=== PATIENT | male | born 1950 | race Caucasian/White ===

== ENCOUNTER 2019-05-25 12:54 | Outpatient (RCR) | payer MEDICARE, MEDICAID, SELFPAY ==
[2019-05-25 13:30] VITALS: BMI 32.7
== END 2019-08-10 07:44 | disposition home or self-care (01) ==
LOC: ANHWOC 12:54
PROVIDERS: PCP Nurse Practitioner Family; Visit Provider Nurse Practitioner Family
DX: S80.812D Abrasion, left lower leg, subsequent encounter (principal)
CPT/HCPCS: 99212; G0463

== ENCOUNTER 2019-10-13 13:36 | Outpatient (CLI) | payer MEDICARE, SELFPAY | END 2019-10-13 13:37 | disposition home or self-care (01) | LOC: CHSLAB 13:38 | PROVIDERS: PCP Family Medicine; Visit Provider Family Medicine | DX: E11.9 Type 2 diabetes mellitus without complications (principal) | CPT/HCPCS: 36415; 83036 ==

== ENCOUNTER 2019-12-18 09:27 | Outpatient (CLI) | payer MEDICARE, MEDICAID, SELFPAY ==
--- NOTE | ~2019-12-18 | US_ITS ---
EXAMINATION: US soft tissue abdomen EXAM DATE: 12/18/2019 09:57 INDICATION: Localized soft tissue lump left of midline. TECHNIQUE: Multiple grayscale and Doppler images of the symptomatic soft tissue abdominal region. wer e obtained (by a technologist who performed the scan) and subsequently reviewed. There is no prior s tudy for comparison. FINDINGS: Scanning in the area of concern demonstrates some heterogeneity to the subcutaneous fat, could be jessica ma without a specific etiology identified. No focal abscess or mass identified. IMPRESSION: 1. Suspect nonspecific edema at area of clinical concern. Reviewed, dictated and finalized at location B.
== END 2019-12-18 09:28 | disposition home or self-care (01) ==
PROVIDERS: PCP Nurse Practitioner Family; Visit Provider Nurse Practitioner Family
DX: R22.2 Localized swelling, mass and lump, trunk (principal)
CPT/HCPCS: 76705

== ENCOUNTER 2020-06-07 13:58 | Outpatient (NON) | payer MEDICARE, SELFPAY ==
[2020-06-07 15:34] LABS: Alanine Aminotransferase 48 U/L (16-63); Albumin Level 3.8 g/dL (3.4-5.0); Alkaline Phosphatase 63 U/L (46-116); Anion Gap 10 mmol/L (8-16); Aspartate Amino Transferase 26 U/L (15-37); Bilirubin,Total 0.2 mg/dL (0.00-1.00); Blood Urea Nitrogen 17 mg/dL (7-18); Calcium 8.7 mg/dL (8.5-10.1); Carbon Dioxide 27 mmol/L (21-32); Chloride 101 mmol/L (98-108); Cholesterol 124 mg/dL (0-200); Estimated Glomerular Filt Rate 51; Glucose 270 mg/dL (70-99); HDL Direct 33 mg/dL (40-60); LDL Cholesterol Calculated 50 mg/dL (<130); Osmolality Calculated 297 mOsm/kg (285-295); Potassium 4.9 mmol/L (3.5-5.1); Sodium 138 mmol/L (136-145); Total Protein 7.8 g/dL (6.4-8.2); Triglycerides 207 mg/dL (0-150)
== END 2020-06-07 13:59 ==
LOC: CHSLAB 13:59
PROVIDERS: Visit Provider Nurse Practitioner Family
DX: E11.9 Type 2 diabetes mellitus without complications (principal)
CPT/HCPCS: 36415; 80053; 80061; 83036

== ENCOUNTER 2020-08-05 10:34 | Observation (INO) | payer MEDICARE, MEDICAID, SELFPAY ==
--- NOTE | ~2020-08-05 | CT_ITS ---
EXAMINATION: CT brain wo con EXAM DATE: 08/05/2020 12:08 INDICATION: Headache, weakness, confusion. TECHNIQUE: Spiral CT of the head was performed without contrast. Axial, coronal and sagittal images were reviewed. The dose-length product (DLP) for this examination was 605.33 mGy-cm. The exposure w as tailored according to patient size, and iterative reconstruction (ASIR) was used as additional dos e reduction technique. Comparison is made to prior examination from 08/17/2015. FINDINGS: There is no acute intraparenchymal hemorrhage. No evidence of intraparenchymal brain mass lesion. No evidence of acute infarction. Please note that initial head CT has limited sensitivity f or small or acute infarctions. There is mild periventricular and subcortical hypodensity, nonspecific but probably related to small vessel ischemic disease. There is moderate prominence of the sulci a nd ventricles related to cerebral atrophy. There is intracranial carotid arteriosclerosis. There a re no extra-axial collections. There is no mass effect or midline shift. Patient has had left-sided ocular lens surgery. Soft tissue is unremarkable. The visualized sinuses and mastoid air cells ar e well aerated. Mild interval progression in age-related findings compared to 2016. IMPRESSION: 1. No acute intracranial findings. 2. Chronic age related findings. Reviewed, dictated and finalized at location A.
--- NOTE | ~2020-08-05 | XR_ITS ---
EXAMINATION: XR chest 2V EXAM DATE: 08/05/2020 11:57 INDICATION: Generalized weakness and confusion. Altered mental status. Headache. TECHNIQUE: Frontal and lateral projections of the chest obtained and reviewed. Comparison is made to prior examination from 04/13/2016. FINDINGS: There is mildly elevated left hemidiaphragm with small amount of adjacent airspace disease most likely atelectasis given the volume loss. Can't totally exclude developing pneumonia. There is no pneumothorax suspected. There are no pleural effusions. The cardiomediastinal silhouette is promin ent but magnified on this AP technique. There are no osseous abnormalities identified. IMPRESSION: Mildly elevated left hemidiaphragm with adjacent atelectasis. Can't totally exclude pneu monia. Reviewed, dictated and finalized at location A. IMPRESSION: Mildly elevated left hemidiaphragm with adjacent atelectasis. Can' t totally exclude pneumonia.
[2020-08-05 10:40] VITALS: BP 146/77; PULSE 91; RESP 20; TEMP 37.5; O2SAT 96
--- NOTE | 2020-08-05 10:42 | ECG_ITS ---
Measurements Intervals [place] Rate: 88 P: 49 [place]: 156 QRS: -32 QRSD: 101 T: -1 QT: 315 QTc: 381 Interpretive Statements SINUS RHYTHM LEFT AXIS DEVIATION VOLTAGE CRITERIA FOR LVH POOR R WAVE PROGRESSION, ANTERIOR LEADS MINIMAL Q WAVES- HIGH LATERAL LEADS BORDERLINE ST-T WAVE ABNORMALITY- INFERIOR LEADS BORDERLINE ECG Electronically Signed On 08-05-2020 11:37:48 CDT by Oni Rangel D.O.
[2020-08-05 10:53] LABS: Add Urine Microscopic? YES; Appearance Urine Clear (Clear); Bilirubin Urine Negative (Negative); Blood Urine Negative (Negative); Color Urine Yellow (Yellow); Glucose Urine UA Trace (Negative); Ketones Urine Negative (Negative); Leukocyte Esterase Ur Negative LEU/UL (Negative); Nitrate Urine Negative (Negative); Protein Urine Negative (Negative); Specific Grav Ur 1.015 (1.010-1.020); Urobilinogen Urine 0.2 mg/dL (0.2-1.0)
[2020-08-05 11:14] LABS: Basophils Absolute Auto 0.01 K/mm3 (0.00-0.10); Basophils Percent Auto 0.2 % (0.0-1.0); Eosinophils Absolute Auto 0.06 K/mm3 (0.02-0.50); Eosinophils Percent Auto 1.3 % (1.0-6.0); Hematocrit 38.9 % (37.0-46.0); Hemoglobin 12.7 g/dL (12.4-15.3); Immature Granulocyte Absolute 0.04 K/mm3 (0.00-0.00); Immature Granulocyte Percent A 0.9 % (0.0-0.0); Lymphocytes Absolute Auto 0.35 K/mm3 (1.10-4.50); Lymphocytes Percent Auto 7.5 % (18.0-42.0); Mean Corpuscular HGB Conc 32.6 g/dL (32.0-36.0); Mean Corpuscular Hemoglobin 29.4 pg (27.0-31.0); Mean Platelet Volume 11.6 fl (8.7-11.0); Monocytes Absolute Auto 0.25 K/mm3 (0.10-0.90); Monocytes Percent Auto 5.3 % (2.0-11.0); Neutrophils Percent Auto 84.8 % (50.0-70.0); Platelet Count Result 153 K/mm3 (150-420); Red Blood Count 4.32 M/mm3 (4.70-6.10); Red Cell Distribution Width 13.8 % (11.6-14.4); White Blood Count 4.7 K/mm3 (4.8-10.8)
[2020-08-05 11:16] LABS: Bacteria Urine None seen /hpf; RBC Urine None seen /hpf (0-2); WBC Urine None seen /hpf (0-3)
[2020-08-05 11:22] LABS: Alanine Aminotransferase 54 U/L (16-63); Albumin Level 3.4 g/dL (3.4-5.0); Alkaline Phosphatase 61 U/L (46-116); Anion Gap 6 mmol/L (8-16); Aspartate Amino Transferase 58 U/L (15-37); Bilirubin,Total 0.4 mg/dL (0.00-1.00); Blood Urea Nitrogen 15 mg/dL (7-18); CRP 2.5 mg/dL (0.0-0.9); Calcium 8.8 mg/dL (8.5-10.1); Carbon Dioxide 28 mmol/L (21-32); Chloride 102 mmol/L (98-108); Estimated Glomerular Filt Rate > 60; Glucose 164 mg/dL (70-99); Osmolality Calculated 286 mOsm/kg (285-295); Potassium 4.1 mmol/L (3.5-5.1); Sodium 136 mmol/L (136-145)
[2020-08-05 11:28] LABS: Partial Thromboplastin Time 25.6 SEC (23.90-30.70); Prothrombin Time 10.9 Seconds (9.50-12.10)
[2020-08-05 11:31] LABS: Lactic Acid Reflex 1.1 mmol/L (0.4-2.0)
[2020-08-05] MEDS: ONDANSETRON INJ 4 MG/2 ML VIAL IV PUSH (11:31)
[2020-08-05] MEDS: SODIUM CHLORIDE 0.9% IV 1,000 ML 999 ML IV CONT (11:31)
[2020-08-05 11:48] LABS: Troponin I 6.8 ng/L (0.00-60.4)
--- NOTE | 2020-08-05 12:53 | ED.WEAKNESS ---
HPI - Weakness General Chief complaint: Weakness Stated complaint: ambulance Time Seen by Provider: 08/05/20 10:34 Source: patient Mode of arrival: ambulatory Limitations: no limitations History of Present Illness HPI Narrative: 70-year-old man brought to the emergency department today by EMS after calling regarding weakness and confusion. His symptoms started this morning. He has not been able to get up and walk like usual. States that his blood sugars have been variable but unusually lower unusually high. He denies shortness breath, chest pain, cough, cold symptoms, nausea, vomiting, diarrhea, dysuria, abdominal pain or back pain. He denies falls or injuries. MD Complaint: generalized weakness and lack of energy Onset (ago): hour(s) Duration: constant Location: generalized Migration: none Severity: moderate Relieving factors: none Exacerbating factors: none Associated symptoms: denies other symptoms Related Data Home Medications Medication Instructions Recorded Confirmed amitriptyline 50 mg PO HS 08/05/20 08/05/20 atorvastatin 10 mg PO DAILY 08/05/20 08/05/20 insulin detemir U-100 [Levemir 45 unit SUBCUT BID 08/05/20 08/05/20 U-100 Insulin] levothyroxine 25 mcg PO DAILY 08/05/20 08/05/20 lisinopril 20 mg PO DAILY 08/05/20 08/05/20 metformin 1,000 mg PO BID 08/05/20 08/05/20 metoprolol succinate 100 mg PO BID 08/05/20 08/05/20 Allergies Allergy/AdvReac Type Severity Reaction Status Date / Time cephalexin Allergy Unknown Unknown Verified 06/07/20 13:32 ibuprofen Allergy Unknown Unknown Verified 06/07/20 13:32 tramadol Allergy Unknown Unknown Verified 06/07/20 13:32 Review of Systems Review of Systems: All systems reviewed & are unremarkable except as noted in HPI and below Constitutional: Constitutional: Denies chills, Denies fever(s) and Reports weakness Eyes: Eyes: Denies change in vision and Denies photophobia ENT: Denies dysphagia, Denies nasal congestion and Denies sore throat Cardiovascular: Cardiovascular: Denies chest pain and Denies radiating jaw, neck or arm pain Respiratory: Respiratory: Denies cough and Denies dyspnea Gastrointestinal: Gastrointestinal: Denies abdominal pain, Denies nausea and Denies vomiting Genitourinary: Genitourinary: Denies dysuria and Denies urinary frequency Musculoskeletal: Musculoskeletal: Denies back pain, Denies arthralgias and Denies joint swelling Integumentary/Breasts: Skin/Breast: Denies pruritus, Denies erythema and Denies rash Neurologic: Denies vertigo, Denies dizziness, Denies syncope, Reports headache(s), Denies focal weakness and Denies numbness Hematologic/Lymphatic: Hematologic/Lymphatic: Denies easy bleeding and Denies easy bruising Allergic/Immunologic: Allergic/Immunologic: Denies lip swelling and Denies throat swelling PMFSH Past Medical History Medical History GERD (gastroesophageal reflux disease) HTN (hypertension) Hyperlipidemia Hypothyroidism Overweight Sleep apnea, unspecified Tobacco dependency Type 2 diabetes mellitus Social History Social History Smoking status: Former smoker Additional smoking assessment comments: Quit 1989 Gender identity (if verbalized by the patient): Male Exam Const: General: healthy appearing, no acute distress and alert Orientation/consciousness: patient oriented x3 Limitations: no limitations HENMT: Head: normal to inspection Ears: external ears normal, TM's normal bilaterally and EAC's normal General nose exam: Normal nares present Face and sinus: normal facial exam Mouth: Yes dry mucous membranes Throat: posterior oropharynx normal Eyes: Conjunctivae: conjunctivae normal Pupils: Equal, round and reactive pupils present EOM: EOMs intact bilaterally Neck: Neck: normal visual inspection Other: No tenderness, normal range of motion. Resp: Effort & Inspection: normal re
[2020-08-05 13:06] VITALS: BP 178/95; PULSE 94; RESP 20; O2SAT 94; O2SAT 97
[2020-08-05 13:14] LABS: SARS-CoV-2 Ag Negative (Negative)
[2020-08-05 14:12] VITALS: BP 149/94; BP 168/94; PULSE 95; RESP 20; TEMP 37.1; O2SAT 97
[2020-08-05 14:41] VITALS: BP 166/88; PULSE 95; RESP 20; O2SAT 95
--- NOTE | 2020-08-05 15:12 | ADMGEN ---
This patient, Fritz Sousa, was admitted to 2nd Floor Room 227-1 @ 1445. Patient/family oriented to hospital policies and general routines including ID bracelet, bed and alarms, visiting hours, pain management, procedures, bathroom and other care routines, personal items, smoking policy, room service/diet, and visiting hours. Information on how to activate the Rapid Response Team has been discussed. Patient/Family are encouraged to report perceived risks to care and to ask questions if they do not understand what they are told or what they should do.
[2020-08-05] MEDS: SODIUM CHLORIDE 0.9% IV 1,000 ML 100 ML IV CONT (15:55)
[2020-08-05 16:00] VITALS: BP 155/89; PULSE 94; RESP 16; TEMP 36.6; O2SAT 95
[2020-08-05 16:03] VITALS: BMI 31.2
--- NOTE | 2020-08-05 16:10 | PC.NURSE ---
physician notified of fall at 1600
--- NOTE | 2020-08-05 16:12 | PC.NURSE ---
pt found on floor in bathroom by PT, amb to chair with x2 assist and gait belt, moved to room 207 for safety, pt able to answer where he is and what day it is, dr called, no visible signs of deformaties or new skin tears, bed alarm on, rails up, iv running
[2020-08-05] MEDS: ACETAMINOPHEN 325 MG TABLET 650 MG PO (17:03)
[2020-08-05] MEDS: ENOXAPARIN 40 MG/0.4 ML SYRINGE SUB-Q (17:04)
[2020-08-05] MEDS: metFORMIN HCL 500 MG TABLET 1000 MG PO (17:04)
[2020-08-05 17:12] LABS: Glucose Point of Care 199 (65-105)
--- NOTE | 2020-08-05 17:42 | PC.NURSE ---
spoke with franchesca concerning fall and trulicity, reports he has been having trouble getting up today and fell 3 times at home, she will bring up trulicity tomorrow she is unsure what day he takes it
[2020-08-05] MEDS: GABAPENTIN 400 MG CAPSULE 1600 MG PO (21:25)
[2020-08-05] MEDS: AMITRIPTYLINE HCL 25 MG TABLET 50 MG PO (21:25)
[2020-08-05] MEDS: HYDROcodone/acetaminophen (*CRX) 5-325 MG TABLET 1 TAB PO (21:25)
[2020-08-05 21:32] LABS: Glucose Point of Care 259 (65-105)
--- NOTE | 2020-08-05 21:48 | PC.NURSE ---
pt resting in bed, iv running, no complaints at this time, urinal in reach, rails up, bed alarm on
[2020-08-06] VITALS: BP 157/80; PULSE 86; RESP 20; TEMP 37; O2SAT 96
--- NOTE | 2020-08-06 00:11 | PC.NURSE ---
Pt watching tv and doesnt voice any c/o discomfort; Pt voided 675 ml of clear, katlyn urine in urinal. Side rails up x2 and call rowe within reach.
[2020-08-06] MEDS: SODIUM CHLORIDE 0.9% IV 1,000 ML 100 ML IV CONT (03:36)
--- NOTE | 2020-08-06 03:36 | PC.NURSE ---
Pt asleep and no signs of discomfort noted. New bag of IV fluid infusing as ordered.
[2020-08-06 05:44] LABS: Hemoglobin 12.4 g/dL (12.4-15.3); Mean Corpuscular HGB Conc 31.8 g/dL (32.0-36.0); Mean Corpuscular Volume 91.1 fL (78.0-102.0); Mean Platelet Volume 12.6 fl (8.7-11.0); Platelet Count Result 152 K/mm3 (150-420); Red Blood Count 4.28 M/mm3 (4.70-6.10); Red Cell Distribution Width 14.5 % (11.6-14.4); White Blood Count 3.7 K/mm3 (4.8-10.8)
[2020-08-06 05:59] LABS: Alanine Aminotransferase 47 U/L (16-63); Albumin Level 3.1 g/dL (3.4-5.0); Alkaline Phosphatase 59 U/L (46-116); Anion Gap 11 mmol/L (8-16); Aspartate Amino Transferase 41 U/L (15-37); Bilirubin,Total 0.4 mg/dL (0.00-1.00); Blood Urea Nitrogen 18 mg/dL (7-18); Calcium 8.3 mg/dL (8.5-10.1); Carbon Dioxide 24 mmol/L (21-32); Chloride 99 mmol/L (98-108); Estimated CRCL calculation 60 ml/min; Estimated Glomerular Filt Rate 60; Glucose 260 mg/dL (70-99); Osmolality Calculated 288 mOsm/kg (285-295); Potassium 4.1 mmol/L (3.5-5.1); Sodium 134 mmol/L (136-145); Total Protein 6.5 g/dL (6.4-8.2)
[2020-08-06 06:11] LABS: CRP 3.3 mg/dL (0.0-0.9)
[2020-08-06] MEDS: LEVOTHYROXINE SODIUM 25 MCG TABLET PO (06:35)
[2020-08-06 07:04] LABS: Band Neutrophils Percent 7 % (0-6); Basophils Percent Manual 0 % (0-1); Eosinophils Percent Manual 0 % (1-6); Lymphocytes Absolute Manual 0.99 K/mm3 (1.1-4.5); Lymphocytes Percent Manual 27 % (18-44); Metamyelocytes Percent 1 %; Monocytes Percent Manual 11 % (3-9); Neutrophils Absolute Manual 2.25 K/mm3 (1.3-6.7); Neutrophils Percent Manual 54 % (46-73); Total Cells Counted 100
[2020-08-06 07:05] LABS: Platelet Estimate Adequate (Adequate)
--- NOTE | 2020-08-06 07:08 | PC.NURSE ---
Pt given synthroid 25 mcg PO as ordered.
[2020-08-06 07:52] LABS: Glucose Point of Care 278 (65-105)
[2020-08-06 08:00] VITALS: BP 142/77; PULSE 100; RESP 20; TEMP 37.2; O2SAT 93
[2020-08-06] MEDS: INSULIN DETEMIR 100 UNITS/ML 45 UNITS SUB-Q ×2 (08:38→17:12)
[2020-08-06 08:40] VITALS: PULSE 100
[2020-08-06] MEDS: METOPROLOL SUCCINATE EXT REL 50 MG TABCR 100 MG PO (08:40)
[2020-08-06] MEDS: lisinopriL 20 MG TABLET PO (08:41)
[2020-08-06] MEDS: ATORVASTATIN 10 MG TABLET PO (08:41)
[2020-08-06] MEDS: GABAPENTIN 400 MG CAPSULE 800 MG PO (08:41)
[2020-08-06] MEDS: metFORMIN HCL 500 MG TABLET 1000 MG PO ×2 (08:41→17:10)
[2020-08-06] MEDS: MELOXICAM 7.5 MG TABLET 15 MG PO (08:42)
--- NOTE | 2020-08-06 11:22 | PM.IMHP ---
H&P: HPI History of Present Illness Date/Time: 08/06/20 11:22 this is a 70-year-old presented to our ED with weakness and confusion. Patient has a past medical history of GERD, hypertension, hyperlipidemia, hypothyroidism, sleep apnea. Tobacco dependency with type 2 diabetes. According to patient he gets up every morning and cooks herself breakfast. This morning he attempted to get out of bed and fell to the floor. Patient denies any lightheadedness, dizziness, shortness of breath or chest pain at that time. After his fall his called EMS to transport him here to the ED. According to report patient attempted to get out of bed overnight while hospitalized and fell while he was in the restroom. Patient notes that while in the restroom his lower extremities felt weak and he fell. Patient does deny any injuries or hitting his head. patient glucose 164, CRP 2.5, AST 58 all other lab test within normal limits, chest x-ray indicates possible pneumonia CT of the head no acute findings. EKG sinus rhythm heart rate of 88. The patient denies SOB, CP, palpitation, extremity numbness, lightheadedness, dizziness, constipation, diarrhea, chills, or fever. Patient does admit weakness. I did have a discussion with his this a.m. she seemed to be in distress, she noted that she is unable to home with outpatient and requested that he be discharged today. I informed her that it would be unsafe for us to discharge him without being evaluated by physical therapy. Patient has no complaints Patient moved closer to the nursing station to prevent falls Chief Complaint: Weakness, fall, confusion Review of Systems Review of Systems: Narrative: A 14 organ system Review of Systems was performed and pertinent positives included in the HPI, otherwise remaining ROS is negative. All systems reviewed & are unremarkable except as noted in HPI and below PMFSH Past Medical History Medical History (Updated 08/06/20 @ 12:03 by MIMI Jorgensen) GERD (gastroesophageal reflux disease) HTN (hypertension) Hyperlipidemia Hypothyroidism Overweight Sleep apnea, unspecified Tobacco dependency Type 2 diabetes mellitus Social History Social History Smoking status: Former smoker Tobacco type: cigarettes Second hand tobacco smoke exposure: Yes Additional smoking assessment comments: Quit 1989 Gender identity (if verbalized by the patient): Male Meds Home Medications and Allergies Home Medications Medication Instructions Recorded Confirmed Type meloxicam 15 mg tablet See Rx Instructions .ROUTE 12/31/19 08/05/20 Rx .COMPLEX #90 tablet gabapentin 800 mg tablet See Rx Instructions .ROUTE 05/26/20 08/05/20 Rx .COMPLEX #90 tablet dulaglutide 0.75 mg/0.5 mL 0.75 mg SUBCUT WEEKLY #2 ml 06/10/20 08/05/20 Rx subcutaneous pen injector amitriptyline 50 mg PO HS 08/05/20 08/05/20 History atorvastatin 10 mg PO DAILY 08/05/20 08/05/20 History insulin detemir U-100 [Levemir 45 unit SUBCUT BID 08/05/20 08/05/20 History U-100 Insulin] levothyroxine 25 mcg PO DAILY 08/05/20 08/05/20 History lisinopril 20 mg PO DAILY 08/05/20 08/05/20 History metformin 1,000 mg PO BID 08/05/20 08/05/20 History metoprolol succinate 100 mg PO BID 08/05/20 08/05/20 History Allergies Allergy/AdvReac Type Severity Reaction Status Date / Time cephalexin Allergy Unknown Unknown Verified 06/07/20 13:32 ibuprofen Allergy Unknown Unknown Verified 06/07/20 13:32 tramadol Allergy Unknown Unknown Verified 06/07/20 13:32 Vital Signs Vital Signs - 24 hr 08/05/20 13:06 08/05/20 14:12 08/05/20 14:41 Temperature 98.7 F Pulse Rate 94 95 95 Respiratory Rate 20 20 20 Blood Pressure 178/95 H 168/94 H 166/88 H Pulse Oximetry 97 97 95 08/05/20 16:00 08/06/20 00:00 08/06/20 08:40 Temperature 97.9 F 98.6 F Pulse Rate 94 86 100 Respiratory Rate 16 20 Blood Pressure 155/89 H 157/80 H Pulse Oximetry 95 96
[2020-08-06 12:03] LABS: Glucose Point of Care 279 (65-105)
[2020-08-06 12:31] LABS: Lactic Acid Reflex 1.3 mmol/L (0.4-2.0)
[2020-08-06] MEDS: DOXYCYCLINE HYCLATE 100 MG TABLET PO ×2 (13:54→20:19)
[2020-08-06] MEDS: PANTOPRAZOLE SOD SESQUIHYDRATE 20 MG TAB PO (13:54)
[2020-08-06 16:00] VITALS: BP 153/78; PULSE 90; RESP 18; TEMP 36.4; O2SAT 98
[2020-08-06 16:45] LABS: Glucose Point of Care 305 (65-105)
[2020-08-06] MEDS: ENOXAPARIN 40 MG/0.4 ML SYRINGE SUB-Q (17:10)
[2020-08-06] MEDS: GABAPENTIN 400 MG CAPSULE 1600 MG PO (20:18)
[2020-08-06] MEDS: AMITRIPTYLINE HCL 25 MG TABLET 50 MG PO (20:18)
[2020-08-07] VITALS: BP 154/82; PULSE 84; RESP 20; TEMP 36.1; O2SAT 96
[2020-08-07] MEDS: LEVOTHYROXINE SODIUM 25 MCG TABLET PO (06:09)
[2020-08-07 08:00] VITALS: BP 172/96; PULSE 83; RESP 18; TEMP 36.3; O2SAT 95
[2020-08-07 08:22] LABS: Glucose Point of Care 82 (65-105)
[2020-08-07 09:03] VITALS: PULSE 83
[2020-08-07] MEDS: MELOXICAM 7.5 MG TABLET 15 MG PO (09:03)
[2020-08-07] MEDS: METOPROLOL SUCCINATE EXT REL 50 MG TABCR 100 MG PO (09:03)
[2020-08-07] MEDS: GABAPENTIN 400 MG CAPSULE 800 MG PO (09:04)
[2020-08-07] MEDS: metFORMIN HCL 500 MG TABLET 1000 MG PO (09:04)
[2020-08-07] MEDS: DOXYCYCLINE HYCLATE 100 MG TABLET PO (09:05)
[2020-08-07] MEDS: ATORVASTATIN 10 MG TABLET PO (09:05)
[2020-08-07] MEDS: lisinopriL 20 MG TABLET PO (09:05)
[2020-08-07] MEDS: PANTOPRAZOLE SOD SESQUIHYDRATE 20 MG TAB PO (09:05)
[2020-08-07 09:19] LABS: Hematocrit 37.7 % (37.0-46.0); Hemoglobin 12.2 g/dL (12.4-15.3); Mean Corpuscular HGB Conc 32.4 g/dL (32.0-36.0); Mean Corpuscular Hemoglobin 28.9 pg (27.0-31.0); Mean Corpuscular Volume 89.3 fL (78.0-102.0); Mean Platelet Volume 11.8 fl (8.7-11.0); Platelet Count Result 157 K/mm3 (150-420); Red Blood Count 4.22 M/mm3 (4.70-6.10); Red Cell Distribution Width 14.3 % (11.6-14.4); White Blood Count 4.4 K/mm3 (4.8-10.8)
[2020-08-07 09:40] LABS: Alanine Aminotransferase 48 U/L (16-63); Albumin Level 3.1 g/dL (3.4-5.0); Alkaline Phosphatase 57 U/L (46-116); Anion Gap 8 mmol/L (8-16); Aspartate Amino Transferase 35 U/L (15-37); Bilirubin,Total 0.4 mg/dL (0.00-1.00); Blood Urea Nitrogen 17 mg/dL (7-18); Calcium 8.8 mg/dL (8.5-10.1); Carbon Dioxide 26 mmol/L (21-32); Chloride 104 mmol/L (98-108); Estimated CRCL calculation 63 ml/min; Estimated Glomerular Filt Rate > 60; Glucose 160 mg/dL (70-99); Osmolality Calculated 290 mOsm/kg (285-295); Potassium 3.9 mmol/L (3.5-5.1); Sodium 138 mmol/L (136-145); Total Protein 6.8 g/dL (6.4-8.2)
[2020-08-07 11:46] LABS: Glucose Point of Care 170 (65-105)
--- NOTE | 2020-08-07 11:58 | P.DS_ITS ---
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: Code(s): E08.40 - Diabetes mellitus due to underlying condition with diabetic neuropathy, unspecified Status: Acute Assessment and Plan: * According to patient he is a brittle diabetic * Continue home medication * Continue gabapentin (3) Tobacco dependency: Code(s): F17.200 - Nicotine dependence, unspecified, uncomplicated Status: Resolved Assessment and Plan: * Patient has not smoked for several years (4) Sleep apnea, unspecified: Code(s): G47.30 - Sleep apnea, unspecified Status: Acute (5) Type 2 diabetes mellitus: Code(s): E11.9 - Type 2 diabetes mellitus without complications Status: Acute Assessment and Plan: * According to patient he is a brittle diabetic * Continue home medication * Continue gabapentin (6) Hypothyroidism: Code(s): E03.9 - Hypothyroidism, unspecified Status: Acute Assessment and Plan: * Continue Synthroid * TSH within normal limits (7) HTN (hypertension): Code(s): I10 - Essential (primary) hypertension Status: Acute Assessment and Plan: * Slightly elevated * Continue home medication follow-up primary care physician (8) Hyperlipidemia: Code(s): E78.5 - Hyperlipidemia, unspecified Status: Acute Assessment and Plan: * Continue statins (9) GERD (gastroesophageal reflux disease): Code(s): K21.9 - Gastro-esophageal reflux disease without esophagitis Status: Acute Assessment and Plan: * Take [id number] medication follow-up primary care physician (10) Overweight: Code(s): E66.3 - Overweight Status: Chronic Assessment and Plan: * Educated on healthy lifestyle (11) Cellulitis: Code(s): L03.90 - Cellulitis, unspecified Status: Acute Assessment and Plan: * Cellulitis of the left pointer finger * Continue doxycycline x14 days * Lactic acid pending (12) Pneumonia: Code(s): J18.9 - Pneumonia, unspecified organism Status: Acute Assessment and Plan: * According to chest CT pneumonia cannot be ruled out * Blood culture. Pending preliminary no growth * Continue doxycycline * WBCs within normal limits patient afebrile (13) Elevated C-reactive protein (CRP): Code(s): R79.82 - Elevated C-reactive protein (CRP) Status: Acute Assessment and Plan: * Possibly secondary to falls * CRP 2.5-->3.3 * Worsened possibly secondary to repeat fall while hospitalized (14) Elevated AST (SGOT): Code(s): R74.01 - Elevation of levels of liver transaminase levels Status: Acute Assessment and Plan: * Resolved * Etiology unknown * AST 58-->41-->35 DS: Summary Hospital Course Hospital Course: his is a 70-year-old presented to our ED with weakness and confusion. Patient has a past medical history of GERD, hypertension, hyperlipidemia, hypothyroidism, sleep apnea with type 2 diabetes. According to patient he gets up every morning and cooks herself breakfast. The morning of admission he attempted to get out of bed and fell to the floor. Patient denies any lightheadedness, dizziness, short
--- NOTE | 2020-08-07 11:58 | PM.DS ---
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: Code(s): E08.40 - Diabetes mellitus due to underlying condition with diabetic neuropathy, unspecified Status: Acute Assessment and Plan: According to patient he is a brittle diabetic Continue home medication Continue gabapentin (3) Tobacco dependency: Code(s): F17.200 - Nicotine dependence, unspecified, uncomplicated Status: Resolved Assessment and Plan: Patient has not smoked for several years (4) Sleep apnea, unspecified: Code(s): G47.30 - Sleep apnea, unspecified Status: Acute (5) Type 2 diabetes mellitus: Code(s): E11.9 - Type 2 diabetes mellitus without complications Status: Acute Assessment and Plan: According to patient he is a brittle diabetic Continue home medication Continue gabapentin (6) Hypothyroidism: Code(s): E03.9 - Hypothyroidism, unspecified Status: Acute Assessment and Plan: Continue Synthroid TSH within normal limits (7) HTN (hypertension): Code(s): I10 - Essential (primary) hypertension Status: Acute Assessment and Plan: Slightly elevated Continue home medication follow-up primary care physician (8) Hyperlipidemia: Code(s): E78.5 - Hyperlipidemia, unspecified Status: Acute Assessment and Plan: Continue statins (9) GERD (gastroesophageal reflux disease): Code(s): K21.9 - Gastro-esophageal reflux disease without esophagitis Status: Acute Assessment and Plan: Take [id number] medication follow-up primary care physician (10) Overweight: Code(s): E66.3 - Overweight Status: Chronic Assessment and Plan: Educated on healthy lifestyle (11) Cellulitis: Code(s): L03.90 - Cellulitis, unspecified Status: Acute Assessment and Plan: Cellulitis of the left pointer finger Continue doxycycline x14 days Lactic acid pending (12) Pneumonia: Code(s): J18.9 - Pneumonia, unspecified organism Status: Acute Assessment and Plan: According to chest CT pneumonia cannot be ruled out Blood culture. Pending preliminary no growth Continue doxycycline WBCs within normal limits patient afebrile (13) Elevated C-reactive protein (CRP): Code(s): R79.82 - Elevated C-reactive protein (CRP) Status: Acute Assessment and Plan: Possibly secondary to falls CRP 2.5-->3.3 Worsened possibly secondary to repeat fall while hospitalized (14) Elevated AST (SGOT): Code(s): R74.01 - Elevation of levels of liver transaminase levels Status: Acute Assessment and Plan: Resolved Etiology unknown AST 58-->41-->35 DS: Summary Hospital Course Hospital Course: his is a 70-year-old presented to our ED with weakness and confusion. Patient has a past medical history of GERD, hypertension, hyperlipidemia, hypothyroidism, sleep apnea with type 2 diabetes. According to patient he gets up every morning and cooks herself breakfast. The morning of admission he attempted to get out of bed and fell to the floor. Patient denies any lightheadedness, dizziness, shortness of breath or chest pain at that time. After he fell his called EMS to transport him here to the ED. According to report patient attempted to get out of bed overnight while hospitalized and fell while he was in the restroom. Patient notes that while in the restroom his lower extremities felt weak and he fell. Patient denied any injuries or hitting his head. Patient Was Admitted for CAP and cellulitis to the hand .patient was treated with antibiotic as inpatie
--- NOTE | 2020-08-07 13:35 | PC.NURSE ---
Patient discharged home @ 1330 accompanied by spouse via personal vehicle. Discharge instructions/teaching successful with patient/spouse both acknowledge understanding. All personal items taken with spouse and car pulled to main entrance. Nurse escorted patient to entrance via WC and assisted in transfer to car.
--- NOTE | 2020-08-10 09:53 | PC.NURSE ---
Spouse states they received and understood the discharge instructions. She has no other comments.
[2020-08-17 13:28] LABS: Glucose Point of Care 266 (65-105)
== END 2020-08-07 13:20 | disposition home or self-care (01) ==
LOC: CHSED 10:37 → CHS2ND 13:49
PROVIDERS: Nurse Practitioner; Admitting Provider Emergency Medicine; Emergency Provider Emergency Medicine; PCP Nurse Practitioner Family; Visit Provider Emergency Medicine
DX: J18.9 Pneumonia, unspecified organism (principal); E11.40 Type 2 diabetes mellitus with diabetic neuropathy, unspecified; L03.012 Cellulitis of left finger; I10 Essential (primary) hypertension; K21.9 Gastro-esophageal reflux disease without esophagitis; E78.5 Hyperlipidemia, unspecified; E03.9 Hypothyroidism, unspecified; E66.3 Overweight; G47.30 Sleep apnea, unspecified; R74.01 Elevation of levels of liver transaminase levels; Z20.822 Contact with and (suspected) exposure to COVID-19; Z87.891 Personal history of nicotine dependence
CPT/HCPCS: 36415; 51701; 70450; 71046; 80053; 81001; 82948; 83605; 84443; 84484; 85025; 85027; 85610; 85730; 86140; 87040; 87426; 93005; 96361; 96365; 96366; 96372; 96374; 96375; 97162; 97165; 97530; 99285; A9270; C9803; G0378; J1650; J1815; J1956; J2405; J7030

== ENCOUNTER 2021-07-24 13:57 | Outpatient (CLI) | payer OTHER, SELFPAY ==
[2021-07-24 14:14] LABS: Basophils Absolute Auto 0.03 K/mm3 (0.00-0.10); Basophils Percent Auto 0.7 % (0.0-1.0); Eosinophils Absolute Auto 0.11 K/mm3 (0.02-0.50); Eosinophils Percent Auto 2.4 % (1.0-6.0); Hematocrit 40.6 % (37.0-46.0); Hemoglobin 13.3 g/dL (12.4-15.3); Immature Granulocyte Absolute 0.02 K/mm3 (0.00-0.00); Immature Granulocyte Percent A 0.4 % (0.0-0.0); Immature Platelet Fraction Pct 9.1 % (1.0-7.0); Lymphocytes Absolute Auto 0.72 K/mm3 (1.10-4.50); Mean Corpuscular HGB Conc 32.8 g/dL (32.0-36.0); Mean Corpuscular Hemoglobin 29.4 pg (27.0-31.0); Mean Corpuscular Volume 89.8 fL (78.0-102.0); Mean Platelet Volume 12.9 fl (8.7-11.0); Monocytes Absolute Auto 0.31 K/mm3 (0.10-0.90); Monocytes Percent Auto 6.9 % (2.0-11.0); Neutrophils Absolute Auto 3.3 K/mm3 (1.7-7.2); Neutrophils Percent Auto 73.6 % (50.0-70.0); Platelet Count Result 205 K/mm3 (150-420); Red Blood Count 4.52 M/mm3 (4.70-6.10); White Blood Count 4.5 K/mm3 (4.8-10.8)
[2021-07-24 14:46] LABS: Alanine Aminotransferase 46 U/L (16-63); Albumin Level 3.9 g/dL (3.4-5.0); Alkaline Phosphatase 72 U/L (46-116); Anion Gap 9 mmol/L (8-16); Bilirubin,Total 0.3 mg/dL (0.00-1.00); Blood Urea Nitrogen 15 mg/dL (7-18); Calcium 9.1 mg/dL (8.5-10.1); Carbon Dioxide 26 mmol/L (21-32); Chloride 100 mmol/L (98-108); Cholesterol 136 mg/dL (0-200); Estimated Glomerular Filt Rate 56; Free T4 Free Thyroxine 0.89 ng/dL (0.76-1.46); HDL Direct 32 mg/dL (40-60); LDL Cholesterol Calculated 30 mg/dL (<130); Sodium 135 mmol/L (136-145); Thyroid Stimulating Hormone 4.38 uIU/mL (0.36-3.74); Total Protein 7.3 g/dL (6.4-8.2); Triglycerides 368 mg/dL (0-150)
[2021-07-24 15:05] LABS: Glucose 370 mg/dL (70-99); Osmolality Calculated 295 mOsm/kg (285-295)
[2021-07-24 15:35] LABS: Aspartate Amino Transferase 33 U/L (15-37)
== END 2021-07-24 13:58 | disposition home or self-care (01) ==
LOC: CHSLAB 14:04
PROVIDERS: PCP Nurse Practitioner Family; Visit Provider Nurse Practitioner Family
DX: E03.9 Hypothyroidism, unspecified (principal); E11.9 Type 2 diabetes mellitus without complications; E78.5 Hyperlipidemia, unspecified; S98.111A Complete traumatic amputation of right great toe, initial encounter; I10 Essential (primary) hypertension
CPT/HCPCS: 36415; 80053; 80061; 83036; 84439; 84443; 85025; 85055

== ENCOUNTER 2021-07-31 13:12 | Outpatient (CLI) | payer OTHER, SELFPAY ==
[2021-07-31 14:11] LABS: Alanine Aminotransferase 58 U/L (16-63); Albumin Level 3.9 g/dL (3.4-5.0); Alkaline Phosphatase 62 U/L (46-116); Anion Gap 12 mmol/L (8-16); Aspartate Amino Transferase 42 U/L (15-37); Bilirubin,Total 0.3 mg/dL (0.00-1.00); Blood Urea Nitrogen 16 mg/dL (7-18); Calcium 9.2 mg/dL (8.5-10.1); Carbon Dioxide 23 mmol/L (21-32); Chloride 102 mmol/L (98-108); Estimated Glomerular Filt Rate 60; Potassium 5.1 mmol/L (3.5-5.1); Sodium 137 mmol/L (136-145); Total Protein 7.4 g/dL (6.4-8.2)
[2021-07-31 14:15] LABS: Glucose 174 mg/dL (70-99); Osmolality Calculated 289 mOsm/kg (285-295)
== END 2021-07-31 13:13 | disposition home or self-care (01) ==
LOC: CHSLAB 13:14
PROVIDERS: PCP Nurse Practitioner Family; Visit Provider Nurse Practitioner Family
DX: E87.5 Hyperkalemia (principal)
CPT/HCPCS: 36415; 80053

== ENCOUNTER 2021-11-01 13:48 | Outpatient (CLI) | payer OTHER, SELFPAY ==
[2021-11-01 14:11] LABS: Anion Gap 7 mmol/L (8-16); Blood Urea Nitrogen 23 mg/dL (7-18); Calcium 9.2 mg/dL (8.5-10.1); Carbon Dioxide 27 mmol/L (21-32); Chloride 101 mmol/L (98-108); Estimated Glomerular Filt Rate 41; Glucose 303 mg/dL (70-99); Osmolality Calculated 294 mOsm/kg (285-295); Sodium 135 mmol/L (136-145)
[2021-11-03 14:39] LABS: Parathyroid Intact 32 pg/mL (14-64)
[2021-11-15 17:45] LABS: Vitamin D 25 Hydroxy 16 ng/mL (30-100)
== END 2021-11-01 13:49 | disposition home or self-care (01) ==
LOC: CHSLAB 13:51
PROVIDERS: PCP Family Medicine; Visit Provider Family Medicine
DX: R73.9 Hyperglycemia, unspecified (principal); E83.51 Hypocalcemia
CPT/HCPCS: 36415; 80048; 82306; 83970

== ENCOUNTER 2021-11-11 13:23 | Emergency (ER) | payer OTHER, SELFPAY ==
--- NOTE | ~2021-11-11 | CT_ITS ---
EXAMINATION: CT cervical spine wo con DATE: 11/11/2021 14:56 INDICATION: mult falls today TECHNIQUE: Computed tomography (CT) of the cervical spine was performed without intravenous contrast. Automated exposure control and iterative reconstruction technique were employed. The dose-length pro duct was 401.60 mGy-cm. COMPARISON: None FINDINGS: Vertebral Body Alignment: Intact. Craniocervical and atlantoaxial alignment: Moderate degenerative change. Alignment intact. Osseous structures/fracture: No evidence of a lytic or blastic process in the visualized spine. No e vidence of acute fracture. Cervical soft tissues: The paraspinal soft tissues planes are maintained. Degenerative changes: Degenerative changes, without severe neural foraminal or central canal narrowin g. IMPRESSION: No acute fracture or traumatic malalignment in the cervical spine. Reviewed, dictated and finalized at location K.
--- NOTE | ~2021-11-11 | CT_ITS ---
EXAMINATION: CT brain wo con DATE: 11/11/2021 14:56 INDICATION: falls today, weakness . TECHNIQUE: Computed tomography (CT) of the head was performed without intravenous contrast. The mA wa s adjusted according to patient size. Iterative reconstruction technique was employed. The dose-lengt h product was 681.00 mGy-cm. COMPARISON: 08/05/2020. FINDINGS: No acute intracranial hemorrhage or extra-axial fluid collection. No hydrocephalus, mass, or herniation. No acute ischemic infarct. Unremarkable dural venous sinus attenuation. No acute osseous abnormality. The aerated spaces are clear. Moderate atrophy and mild chronic white matter change. Left lens replacement. Intracranial atheroscle rosis. IMPRESSION: No acute intracranial process. Reviewed, dictated and finalized at location K.
[2021-11-11 13:33] VITALS: BP 155/84; PULSE 110; RESP 20; TEMP 37.5; O2SAT 91
--- NOTE | 2021-11-11 13:43 | ED.FALL ---
HPI - Fall General Chief Complaint: Weakness Stated Complaint: ambulance Time Seen by Provider: 11/11/21 13:43 Source: patient Mode of arrival: EMS History of Present Illness HPI Narrative: 71-year-old male with a history of diabetes mellitus, hypertension, dyslipidemia, hypothyroidism, PVD status post toe amputation, MUKESH, presents with -- weakness - the patient got up and felt weak following which he fell backwards. No loss of consciousness. the patient normally is able get up and walk has been very unsteady today. EMS was called after the fall. Blood sugar was noted to be 267. Patient was noted to be stable. No focal neuro deficits were noted. He denied chest pain, shortness of breath, nausea / vomiting. MD complaint: fall Onset (ago): hour(s) ( 1 hour ago) Fall from: standing Fall witnessed: yes, by family Place fall occurred: home Loss of consciousness: none Prolonged down time: no Symptoms prior to fall: none Location of injury: head Related Data Allergies Allergy/AdvReac Type Severity Reaction Status Date / Time cephalexin Allergy Unknown Unknown Verified 11/11/21 14:56 Review of Systems Review of Systems: All systems reviewed & are unremarkable except as noted in HPI and below Constitutional: Constitutional: Reports as per HPI and Reports no additional constitutional complaints Eyes: Eyes: Reports as per HPI and Reports no additional eye complaints ENT: Reports system reviewed and no additional complaints, except as documented, Reports as per HPI and Reports dizziness Cardiovascular: Cardiovascular: Reports as per HPI and Reports no additional cardiovascular complaints Respiratory: Respiratory: Reports as per HPI and Reports no additional respiratory complaints Gastrointestinal: Gastrointestinal: Reports as per HPI and Reports no additional gastrointestinal complaints Genitourinary: Genitourinary: Reports no additional male genitourinary complaints and Reports as per HPI Musculoskeletal: Musculoskeletal: Reports no additional musculoskeletal complaints and Reports as per HPI Integumentary/Breasts: Skin/Breast: Reports system reviewed and no additional complaints, except as docu and Reports as per HPI Neurologic: Reports system reviewed and no additional complaints, except as documented and Reports as per HPI Psychiatric: Psychiatric: Reports no additional psychiatric complaints and Reports as per HPI Endocrine: Endocrine: Reports no additional endocrine complaints and Reports as per HPI Hematologic/Lymphatic: Hematologic/Lymphatic: Reports no additional hematologic/lymphatic complaints and Reports as per HPI Allergic/Immunologic: Allergic/Immunologic: Reports no additional allergic/immunologic complaints and Reports as per HPI PMF Past Medical History Medical History Amputation of right great toe GERD (gastroesophageal reflux disease) HTN (hypertension) Hyperlipidemia Hypothyroidism Overweight Sleep apnea, unspecified Tobacco dependency Type 2 diabetes mellitus Social History Social History Smoking status: Former smoker Tobacco type: cigarettes Second hand tobacco smoke exposure: Yes Additional smoking assessment comments: Quit 1989 Gender identity (if verbalized by the patient): Male Exam Const: General: no acute distress Orientation/consciousness: patient oriented x3 Other: patient is sluggish. Alert and oriented. HENMT: Head: normal to inspection Ears: external ears normal General nose exam: Normal external nose present Face and sinus: normal facial exam Mouth: Yes dry mucous membranes Throat: posterior oropharynx normal Eyes: Conjunctivae: conjunctivae normal Pupils: Equal, round and reactive pupils present EOM: EOMs intact bilaterally Direct Ophthalmoscopy: no photophobia Neck: Neck: normal visual inspection, no lymphadenopathy and no meningeal
--- NOTE | 2021-11-11 13:57 | ECG_ITS ---
Measurements Intervals [place] Rate: 111 P: 33 MT: 171 QRS: -33 QRSD: 94 T: 56 QT: 303 QTc: 413 Interpretive Statements SINUS TACHYCARDIA LEFT AXIS DEVIATION POOR R WAVE PROGRESSION, ANTERIOR LEADS BORDERLINE ST ABNORMALITY- HIGH LATERAL LEADS BASELINE WANDER- V6 ABNORMAL ECG Electronically Signed On 11-11-2021 15:33:50 CDT by Oni Rangel D.O.
[2021-11-11] MEDS: LACTATED RINGERS 1,000 ML 999 ML IV CONT (14:05)
[2021-11-11 14:16] LABS: Basophils Absolute Auto 0.04 K/mm3 (0.00-0.10); Basophils Percent Auto 0.5 % (0.0-1.0); Eosinophils Absolute Auto 0.08 K/mm3 (0.02-0.50); Hematocrit 47.1 % (37.0-46.0); Hemoglobin 14.8 g/dL (12.4-15.3); Immature Granulocyte Absolute 0.04 K/mm3 (0.00-0.00); Immature Granulocyte Percent A 0.5 % (0.0-0.0); Lymphocytes Absolute Auto 0.25 K/mm3 (1.10-4.50); Lymphocytes Percent Auto 3.2 % (18.0-42.0); Mean Corpuscular HGB Conc 31.4 g/dL (32.0-36.0); Mean Corpuscular Hemoglobin 27.9 pg (27.0-31.0); Mean Corpuscular Volume 88.9 fL (78.0-102.0); Monocytes Absolute Auto 0.46 K/mm3 (0.10-0.90); Monocytes Percent Auto 5.9 % (2.0-11.0); Neutrophils Absolute Auto 6.9 K/mm3 (1.7-7.2); Neutrophils Percent Auto 88.9 % (50.0-70.0); Platelet Count Result 190 K/mm3 (150-420); Red Cell Distribution Width 14.6 % (11.6-14.4); White Blood Count 7.8 K/mm3 (4.8-10.8)
[2021-11-11 14:31] LABS: Partial Thromboplastin Time 25.4 SEC (23.90-30.70); Prothrombin Time 10.9 Seconds (9.50-12.10)
[2021-11-11 14:37] LABS: Lactic Acid Reflex 1.3 mmol/L (0.4-2.0)
[2021-11-11 14:40] LABS: Alanine Aminotransferase 74 U/L (16-63); Albumin Level 4.2 g/dL (3.4-5.0); Alkaline Phosphatase 74 U/L (46-116); Anion Gap 10 mmol/L (8-16); Aspartate Amino Transferase 57 U/L (15-37); Bilirubin,Total 0.3 mg/dL (0.00-1.00); Blood Urea Nitrogen 23 mg/dL (7-18); Calcium 10.2 mg/dL (8.5-10.1); Carbon Dioxide 24 mmol/L (21-32); Chloride 102 mmol/L (98-108); Estimated CRCL calculation 39 ml/min; Estimated Glomerular Filt Rate 42; Glucose 292 mg/dL (70-99); Lipase 58 U/L (73-393); NT Pro B Type Natriuretic Pept 173 pg/mL (0-125); Osmolality Calculated 296 mOsm/kg (285-295); Sodium 136 mmol/L (136-145); Thyroid Stimulating Hormone 2.23 uIU/mL (0.36-3.74); Total Protein 8.8 g/dL (6.4-8.2); Troponin I 7.7 ng/L (0.00-60.4)
[2021-11-11 15:00] VITALS: BP 164/95; PULSE 114; RESP 18; O2SAT 94
[2021-11-11 15:14] LABS: Add Urine Microscopic? YES; Appearance Urine Clear (Clear); Bilirubin Urine Negative (Negative); Blood Urine Negative (Negative); Color Urine Light Yellow (Yellow); Glucose Urine UA 3+ (Negative); Ketones Urine Negative (Negative); Leukocyte Esterase Ur Negative (Negative); Nitrate Urine Negative (Negative); Protein Urine Negative (Negative); Urobilinogen Urine 0.2 mg/dL (0.2-1.0); pH Urine 5.5 (5.0-8.0)
[2021-11-11 15:18] LABS: RBC Urine None seen /hpf (0-2); Squamous Epithelial Cell Urine None seen /hpf (Few); WBC Urine None seen /hpf (0-3)
[2021-11-11] MEDS: SODIUM CHLORIDE 0.9% IV 500 ML 999 ML IV CONT (15:40)
[2021-11-11 15:45] VITALS: BP 194/93; PULSE 102; RESP 20; O2SAT 94
[2021-11-11] MEDS: ACETAMINOPHEN 325 MG TABLET 650 MG PO (15:59)
[2021-11-11 16:25] VITALS: BP 161/77; PULSE 105; RESP 24; O2SAT 98
== END 2021-11-11 16:34 | disposition home or self-care (01) ==
PROVIDERS: Emergency Provider Internal Medicine Critical Care Medicine; PCP Family Medicine
DX: R74.01 Elevation of levels of liver transaminase levels (principal); E11.65 Type 2 diabetes mellitus with hyperglycemia; N18.30 Chronic kidney disease, stage 3 unspecified; I12.9 Hypertensive chronic kidney disease with stage 1 through stage 4 chronic kidney disease, or unspecified chronic kidney disease; K21.9 Gastro-esophageal reflux disease without esophagitis; E78.5 Hyperlipidemia, unspecified; E03.9 Hypothyroidism, unspecified; Z87.891 Personal history of nicotine dependence
CPT/HCPCS: 36415; 70450; 72125; 80053; 81001; 83605; 83690; 83880; 84443; 84484; 85025; 85610; 85730; 93005; 96360; 96361; 99284; A9270; J7040; J7120

== ENCOUNTER 2022-03-16 16:33 | Emergency (ER) | payer OTHER, SELFPAY ==
[2022-03-16] VITALS (36 sets, daily range): BP systolic 92–162; BP diastolic 60–80; PULSE 74–82; RESP 9–26; TEMP 36.7–36.9; O2SAT 86–100
--- NOTE | ~2022-03-16 | CT_ITS ---
EXAMINATION: CT abdomen pelvis wo con DATE: 03/16/2022 17:41 INDICATION: Abdominal pain, vomiting, diarrhea TECHNIQUE: Computed tomography (CT) of the abdomen and pelvis was performed without intravenous contr ast. Automated exposure control and iterative reconstruction technique were employed. Exam dose: 918 .57 mGy-cm total exam DLP. COMPARISON: None. FINDINGS: There is mild atelectasis at the lung bases. Cardiomegaly. No pericardial or pleural effusi on. The liver, gallbladder, bile ducts and spleen are unremarkable. There is extensive fatty replacement of the pancreas. No pancreatic mass lesion, calcification or bryant ritchie dilatation is detected. Normal morphology of the adrenal glands. No renal mass lesion or urinary tract calculus or hydroureteronephrosis is evident. There is prostate enlargement. The urinary bladder is unremarkable. Bilateral fat-containing inguinal hernias. There is atherosclerotic calcification but normal caliber of the abdominal aorta. There is particular ly prominent calcification at the origin of the left renal artery. No intraperitoneal or retroperiton eal or pelvic mass lesion or adenopathy or ascites is evident. Normal appendix. There are nondilated fluid containing small bowel segments and occasional small and large bowel air-f luid levels suggesting enterocolitis. No bowel obstruction, bowel wall thickening, pneumatosis or int raperitoneal free air is evident. No suspicious osteolytic or osteoblastic lesions. IMPRESSION: Normal appendix Fluid levels of nondilated small and large bowel suggesting enterocolitis; no bowel obstruction or fr ee air Bilateral fat-containing inguinal hernias Reviewed, dictated and finalized at Location A. Reviewed, dictated and finalized at location B. CRE[employer]ER IMPRESSION: Normal appendix Fluid levels of nondilated small and large bowel suggesting enterocolitis; no b owel obstruction or free air Bilateral fat-containing inguinal hernias
--- NOTE | ~2022-03-16 | XR_ITS ---
EXAMINATION: XR chest 1V INDICATION: Shortness of breath and increased weakness TECHNIQUE: Frontal view of the chest at 1738 hours COMPARISON: 08/05/2020 FINDINGS: There is mild atelectasis of the left lung base. No pleural effusion or pneumothorax. The c ardiomediastinal silhouette is normal. IMPRESSION: 1. Mild atelectasis of the left lung base. Reviewed, dictated and finalized at location F. CH COORDINATOR
--- NOTE | 2022-03-16 16:56 | ED.NAVMDI ---
HPI - Nausea/Vomiting/Diarrhea General Chief complaint: Nausea/Vomiting/Diarrhea Stated complaint: nausea/vomiting/diarrhea Time Seen by Provider: 03/16/22 16:37 Source: patient, EMS and RN notes reviewed Mode of arrival: EMS Limitations: no limitations History of Present Illness MD elicited complaint: nausea, vomiting and abdominal pain Description of vomiting: food contents and bilious Description of diarrhea: other (none) Associated nausea: Yes Associated abdominal pain: Yes Location of pain: epigastric Pain consistency: constant Severity: mild Pain scale (0-10): 4 Quality: cramping, aching and dull Exacerbating factors: none Relieving factors: none Associated symptoms: fever/chills, nausea/vomiting and weakness Related Data Allergies Allergy/AdvReac Type Severity Reaction Status Date / Time cephalexin Allergy Unknown Unknown Verified 03/16/22 17:21 Review of Systems Review of Systems: All systems reviewed & are unremarkable except as noted in HPI and below Constitutional: Constitutional: Reports no additional constitutional complaints Eyes: Eyes: Reports no additional eye complaints ENT: Reports system reviewed and no additional complaints, except as documented Cardiovascular: Cardiovascular: Reports no additional cardiovascular complaints Respiratory: Respiratory: Reports no additional respiratory complaints Gastrointestinal: Gastrointestinal: Reports abdominal pain, Reports nausea and Reports vomiting Musculoskeletal: Musculoskeletal: Reports no additional musculoskeletal complaints Integumentary/Breasts: Skin/Breast: Reports system reviewed and no additional complaints, except as docu Neurologic: Reports system reviewed and no additional complaints, except as documented Psychiatric: Psychiatric: Reports no additional psychiatric complaints Endocrine: Endocrine: Reports no additional endocrine complaints Hematologic/Lymphatic: Hematologic/Lymphatic: Reports no additional hematologic/lymphatic complaints Allergic/Immunologic: Allergic/Immunologic: Reports no additional allergic/immunologic complaints PMFSH Past Medical History Medical History Amputation of right great toe Gastroenteritis GERD (gastroesophageal reflux disease) HTN (hypertension) Hyperlipidemia Hypothyroidism Overweight Sleep apnea, unspecified Tobacco dependency Type 2 diabetes mellitus Social History Social History Smoking status: Former smoker Tobacco type: cigarettes Second hand tobacco smoke exposure: Yes Additional smoking assessment comments: Quit 1989 Gender identity (if verbalized by the patient): Male Exam Const: General: no acute distress and well nourished Nutritional Appearance: well nourished Orientation/consciousness: patient oriented x3 Limitations: no limitations HENMT: Head: normal to inspection Ears: external ears normal, TM's normal bilaterally and EAC's normal Face/Nose/Sinus: Normal external nose present, Normal nares present, normal facial exam and sinuses nontender Face and sinus: normal facial exam and sinuses nontender Mouth: Yes Normal oral and palatal mucosa present and Yes moist mucous membranes Teeth and gingiva: dentition normal Throat: posterior oropharynx normal Eyes: Conjunctivae: conjunctivae normal Pupils: Equal, round and reactive pupils present EOM: EOMs intact bilaterally Neck: Neck: normal visual inspection, no lymphadenopathy and no meningeal signs Chest: Chest palpation & inspection: normal inspection of the chest Resp: Effort & Inspection: normal respiratory effort Auscultation: clear to auscultation bilaterally Cardio: Rate: regular rate Rhythm: regular rhythm GI: GI Palp: Yes Soft to palpation and Yes Tenderness to palpation present (GI) (minimal epigastric tenderness) Auscultation: normal bowel sounds : General: Yes bladder normal to palpation
[2022-03-16 17:23] LABS: Basophils Absolute Auto 0.08 K/mm3 (0.00-0.10); Basophils Percent Auto 0.5 % (0.0-1.0); Eosinophils Absolute Auto 0.04 K/mm3 (0.02-0.50); Eosinophils Percent Auto 0.2 % (1.0-6.0); Hematocrit 44.8 % (37.0-46.0); Hemoglobin 14.8 g/dL (12.4-15.3); Immature Granulocyte Absolute 0.11 K/mm3 (0.00-0.00); Immature Granulocyte Percent A 0.7 % (0.0-0.0); Lymphocytes Absolute Auto 0.74 K/mm3 (1.10-4.50); Lymphocytes Percent Auto 4.5 % (18.0-42.0); Mean Corpuscular Hemoglobin 29.5 pg (27.0-31.0); Mean Corpuscular Volume 89.2 fL (78.0-102.0); Mean Platelet Volume 12.4 fl (8.7-11.0); Monocytes Absolute Auto 1.38 K/mm3 (0.10-0.90); Monocytes Percent Auto 8.3 % (2.0-11.0); Neutrophils Absolute Auto 14.3 K/mm3 (1.7-7.2); Neutrophils Percent Auto 85.8 % (50.0-70.0); Platelet Count Result 216 K/mm3 (150-420); Red Blood Count 5.02 M/mm3 (4.70-6.10); Red Cell Distribution Width 14.6 % (11.6-14.4); White Blood Count 16.6 K/mm3 (4.8-10.8)
[2022-03-16] MEDS: PANTOPRAZOLE SODIUM IV 40 MG VIAL IV PUSH (17:24)
[2022-03-16 17:39] LABS: Alanine Aminotransferase 46 U/L (16-63); Albumin Level 3.6 g/dL (3.4-5.0); Alkaline Phosphatase 73 U/L (46-116); Anion Gap 10 mmol/L (8-16); Aspartate Amino Transferase 33 U/L (15-37); Bilirubin,Total 0.4 mg/dL (0.00-1.00); Blood Urea Nitrogen 25 mg/dL (7-18); Calcium 9.4 mg/dL (8.5-10.1); Carbon Dioxide 24 mmol/L (21-32); Chloride 101 mmol/L (98-108); Estimated Glomerular Filt Rate 32; Glucose 281 mg/dL (70-99); Lipase 105 U/L (73-393); Osmolality Calculated 294 mOsm/kg (285-295); Potassium 4.6 mmol/L (3.5-5.1); Sodium 135 mmol/L (136-145); Total Protein 7.6 g/dL (6.4-8.2)
[2022-03-16 17:42] LABS: Lactic Acid Reflex 2.1 mmol/L (0.4-2.0)
--- NOTE | 2022-03-16 18:05 | PC.NURSE ---
PT HAS RETURNED FROM CT, VSS. PT DENIES ANY NEEDS OR COMPLAINTS. AWAITING RESULTS AT THIS TIME. NAD NOTED. WILL CONTINUE TO MONITOR.
--- NOTE | 2022-03-16 18:09 | PC.NURSE ---
PT UP TO BEDSIDE COMMODE AT THIS TIME. PT IS AWAITING ERP DECISION AT THIS TIME. WILL CONTINUE TO MONITOR.
[2022-03-16] MEDS: SODIUM CHLORIDE 0.9% IV 1,000 ML 150 ML IV CONT (18:24)
--- NOTE | 2022-03-16 18:33 | PC.NURSE ---
PT HAS BRIGHT RED BLOOD NOTED IN HIS LIQUID STOOL . PT REPORTS HE WAS UNAWARE OF THIS. ERP IS NOTIFIED. PT TO BE TRANSFERRED TO . PT REPORTS HE WOULD LIKE TO GO TO [facility] IN [place]. CALLING [facility] AT THIS TIME. PER BOYD AT CALL CENTER, [facility] DOES NOT HAVE GI, [facility] DOES NOT HAVE ANY BEDS. PT IS NOTIFIED. WILL CALL R[facility] AT THIS TIME.
[2022-03-16] MEDS: AMPICILLIN SULB 3 GM/NS 100 ML 3 GM/100 ML VIAL IVPB (18:41)
--- NOTE | 2022-03-16 18:54 | PC.NURSE ---
1740 PT RECEIVED 1LNS BOLUS PRIOR TO THIS RN ARRIVAL. ERP IS AWARE.
[2022-03-16 18:56] LABS: Occult Blood Positive (Negative)
--- NOTE | 2022-03-16 18:56 | PC.NURSE ---
CALLS TO CHECK STATUS, SHE IS INFORMED OF PLAN TO TRANSFER.
--- NOTE | 2022-03-16 19:31 | PC.NURSE ---
PT BACK UP TO BEDSIDE COMMODE. NAD NOTED. ANOTHER BLOODY LIQUID STOOL NOTED. IVF INFUSING ORDERED WITHOUT DIFFICULTY.
--- NOTE | 2022-03-16 19:53 | PC.NURSE ---
COVID SWAB OBTAINED PER [facility] REQUEST. PT ON BEDSIDE COMMODE AGAIN, BLOODY MUCUS DIARRHEA NOTED. CLEAN DEPEND PROVIDED. WILL CONTINUE TO MONITOR. PT IS AWAITING ROOM ASSIGNMENT FOR TRANSFER.
[2022-03-16 20:21] LABS: Reflex Lactic Acid Yes or No Add Lactic
[2022-03-16 20:29] LABS: SARS-CoV-2 RNA PCR Negative (Negative)
== END 2022-03-16 21:34 | disposition short-term general hospital (02) ==
PROVIDERS: Emergency Provider Emergency Medicine; PCP Family Medicine
DX: K52.9 Noninfective gastroenteritis and colitis, unspecified (principal); K92.2 Gastrointestinal hemorrhage, unspecified; Z20.822 Contact with and (suspected) exposure to COVID-19; I10 Essential (primary) hypertension; E78.5 Hyperlipidemia, unspecified; E03.9 Hypothyroidism, unspecified; E11.9 Type 2 diabetes mellitus without complications; Z87.891 Personal history of nicotine dependence
CPT/HCPCS: 36415; 71045; 74176; 80053; 82272; 83605; 83690; 85025; 87040; 96361; 96365; 96375; 99285; C9113; J0295; J7030; U0003; U0005

== ENCOUNTER 2022-03-16 22:30 | Inpatient (IN) | payer OTHER, SELFPAY ==
[2022-03-16 22:35] VITALS: BP 117/99; PULSE 84; RESP 18; TEMP 36.2; O2SAT 100; BMI 30.3
--- NOTE | 2022-03-16 22:39 | ADMGEN ---
This patient, Fritz Sousa, was admitted to Medical Room 345-01. Patient/family oriented to hospital policies and general routines including ID bracelet, bed and alarms, visiting hours, pain management, procedures, bathroom and other care routines, personal items, smoking policy, room service/diet, and visiting hours. Information on how to activate the Rapid Response Team has been discussed. Patient/Family are encouraged to report perceived risks to care and to ask questions if they do not understand what they are told or what they should do.
--- NOTE | 2022-03-16 22:57 | PM.IMHP ---
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 symptom onset over the last couple days worsening today with increased nausea vomiting. of note patient takes meloxicam for headache and pain. he denies any blood thinner use. Patient has never had issues gastric ulcers in the past. He has never had a colonoscopy, colon cancer screening was with the cologaurd. my evaluation patient complains of abdominal pain and states he did not realize he was having bloody diarrhea. In the ED in [place]: He was found to have enterocolitis on CT scan had an episode bloody mucus diarrhea. he was given a dose of Unasyn, IV fluids normal saline 150 cc/hour. with bloody diarrhea plan is to transfer to [facility] for GI coverage, Dr. Hernandez notified. He was afebrile in the ED, patient reported 101 fever at home. WBC 16.6, hemoglobin stable at 14.8, lactate 2.1, lipase 105, stool call positive, COVID negative, abdominal CT scan showed enterocolitis with fluid levels of nondilated small and large bowel. chest x-ray showed mild atelectasis left lung base. With patient's findings of GI bleed patient was transferred to [facility] for enterocolitis and GI bleed. Review of Systems Review of Systems: Constitutional: No Fever, No Chills, No Night Sweats, No Fatigue, No Malaise ENT/Mouth: No Hearing Changes, No Ear Pain, No Nasal Congestion, No Sinus Pain, No Hoarseness, No sore throat, No Rhinorrhea, No Swallowing Difficulty Eyes: No Eye Pain, No Redness, No Vision Changes Cardiovascular: No Chest Pain, No Palpitations, No Dyspnea on Exertion, No Orthopnea, No Claudication, No Edema Respiratory: No Cough, No Sputum, No Wheezing, No Shortness of Breath Gastrointestinal: Endorses nausea vomiting diarrhea, abdominal pain. Hematochezia Genitourinary: No Dysuria, No Urinary Frequency, No Hematuria, No Urinary Incontinence, No Urgency Musculoskeletal: No Arthralgias, No Myalgias, No Joint Swelling, No Joint Stiffness, No Back Pain Skin: No Skin Lesions, No Pruritis, No Hair Changes Neuro: No Weakness, No Numbness, No Paresthesias, No Loss of Consciousness, No Syncope, No Dizziness, No Headache Psych: No Anxiety/Panic, No Depression, No Insomnia Heme: No Bruising, No Bleeding Lymph: No Adenopathy Endocrine: No Polyuria, No Polydipsia, No Temperature Intolerance PMF Past Medical History Medical History (Updated 03/16/22 @ 23:08 by Rosalina Suh DO) Amputation of right great toe Gastroenteritis GERD (gastroesophageal reflux disease) HTN (hypertension) Hyperlipidemia Hypothyroidism Overweight Sleep apnea, unspecified Tobacco dependency Type 2 diabetes mellitus Surgical History Surgical History (Updated 03/16/22 @ 23:04 by Rosalina Suh DO) History of cataract surgery Family History Family History (Updated 03/16/22 @ 23:04 by Rosalina Suh DO) Mother Breast cancer Father Diabetes mellitus Social History Social History (Updated 03/16/22 @ 23:05 by Rosalina Suh DO) Social History: lives with , ambulates independently, retired Smoking status: Former smoker Second hand tobacco smoke exposure: Yes Additional smoking assessment comments: Quit 1989 Alcohol intake: never Substance use: never Lack of Transportation: No Lack of Food: Never True Current Housing: I Have Housing Concerned About Future Housing: No Difficulty Paying Gas/Electric Bills: No Difficulty Paying for Meds: No Currently Unemployed: No Education: High School Diploma/GED Difficulty w/ Childcare or Family Care: No Gender identity (if verbalized by the patient): Male Spiritual care concerns:
[2022-03-16 23:09] VITALS: BMI 30.2
[2022-03-16 23:50] VITALS: BMI 30.2
[2022-03-16] MEDS: SODIUM CHLORIDE 0.9% IV 1,000 ML 100 ML IV CONT (23:59)
[2022-03-17] VITALS (9 sets, daily range): BP systolic 123–159; BP diastolic 66–80; PULSE 90–110; RESP 16–18; TEMP 35.6–36.9; O2SAT 94–98
[2022-03-17] MEDS: CIPROFLOXACIN 400 MG/D5W 200ML 200 ML 200 MG IVPB (00:01)
[2022-03-17] MEDS: metroNIDAZOLE 500 MG/ISO 100ML 500 MG/100 ML BAG 100 MG IVPB ×4 (00:02→23:10)
[2022-03-17] MEDS: INSULIN ASPART (*BKC) 100 UNITS/ML SUB-Q ×4 (00:11→17:12)
[2022-03-17 00:12] LABS: Glucose Point of Care 368 mg/dl (65-105)
[2022-03-17 00:56] LABS: Hematocrit 48.5 % (42.0-52.0); Hemoglobin 15.8 g/dL (14.0-18.0)
[2022-03-17 06:32] LABS: Glucose Point of Care 319 mg/dl (65-105)
[2022-03-17 06:43] LABS: Basophils Percent Auto 0.3 % (0.2-1.2); Eosinophils Percent Auto 0.1 % (0-4.4); Hematocrit 51.4 % (42.0-52.0); Hemoglobin 16.3 g/dL (14.0-18.0); Immature Granulocyte Absolute 0.06 K/mm3 (0.00-0.031); Immature Granulocyte Percent A 0.4 % (0-0.5); Lymphocytes Percent Auto 3.4 % (18.3-44.2); Mean Corpuscular HGB Conc 31.7 g/dl (32-36); Mean Corpuscular Hemoglobin 28.8 pg (26-34); Mean Platelet Volume 11.9 fl (7.4-10.4); Monocytes Absolute Auto 0.7 K/mm3 (0.1-0.6); Monocytes Percent Auto 4.6 % (2.6-8.5); Neutrophils Absolute Auto 13.5 K/mm3 (1.3-6.7); Neutrophils Percent Auto 91.2 % (45.5-73.1); Platelet Count Result 235 k/mm3 (150-375); Red Blood Count 5.65 M/mm3 (4.6-6.20); White Blood Count 14.7 K/mm3 (4.5-10.0)
[2022-03-17 07:01] LABS: Lactic Acid Reflex 2.1 mmol/L (0.7-2.0)
[2022-03-17 07:07] LABS: Alanine Aminotransferase 40 U/L (6-50); Albumin Level 4.5 g/dL (3.5-5.1); Alkaline Phosphatase 69 U/L (38-126); Anion Gap 14 mmol/L (8-16); Aspartate Amino Transferase 38 U/L (17-59); Bilirubin,Total 0.6 mg/dL (0.2-1.3); Blood Urea Nitrogen 27 mg/dL (9-20); Calcium 9.3 mg/dL (8.4-10.2); Carbon Dioxide 20 mmol/L (22-30); Chloride 104 mmol/L (98-107); Estimated CRCL calculation 43 ml/min; Estimated Glomerular Filt Rate 43; Glucose 322 mg/dL (65-110); Potassium 6.4 mmol/L (3.4-5.0); Sodium 138 mmol/L (137-145)
[2022-03-17 09:40] LABS: Reflex Lactic Acid Yes or No Add Lactic
[2022-03-17 10:13] LABS: Hematocrit 47.9 % (42.0-52.0); Hemoglobin 15.8 g/dL (14.0-18.0)
[2022-03-17] MEDS: amLODIPine BESYLATE 5 MG TABLET 10 MG PO (10:15)
[2022-03-17] MEDS: GABAPENTIN 400 MG CAPSULE 800 MG PO ×2 (10:15→14:47)
[2022-03-17] MEDS: METOPROLOL SUCCINATE EXT REL 100 MG TABCR PO (10:15)
[2022-03-17] MEDS: SODIUM ZIRCONIUM CYCLOSILICATE 10 GM POWD.PACK PO ×2 (10:16→17:12)
[2022-03-17] MEDS: lisinopriL 20 MG TABLET 40 MG PO (10:16)
[2022-03-17] MEDS: SODIUM CHLORIDE 0.9% IV 1,000 ML 100 ML IV CONT ×2 (10:16→20:47)
[2022-03-17] MEDS: EMPAGLIFLOZIN 10 MG TABLET PO (10:16)
[2022-03-17] MEDS: ATORVASTATIN 10 MG TABLET PO (10:16)
[2022-03-17 10:25] LABS: Lactic Acid 2.4 mmol/L (0.7-2.0)
--- NOTE | 2022-03-17 10:45 | P.PNIM_ITS ---
Progress Note: A&P Assessment and Plan (1) Enterocolitis: Code(s): K52.9 - Noninfective gastroenteritis and colitis, unspecified Status: Acute Assessment and Plan: * Abd/Pel CT shows bilateral fat-containing hernia, nondialated small and large bowel enterocolitis * Stool cultures pending * Continue Cirpo/flagyl * WBC elevated at 14.7 * GI consulted thank you for your help * Trend labs * Adjust therapy as indicated (2) GI bleed: Code(s): K92.2 - Gastrointestinal hemorrhage, unspecified Status: Acute Assessment and Plan: * Occult blood positive * HGB/HCT stable * GI consulted * Continue to trend H/H * Transfuse as indicated (3) HTN (hypertension): Code(s): I10 - Essential (primary) hypertension Status: Acute Assessment and Plan: * Current blood pressure is 137/76 * Continue home amlodipine, lisinopril, metoprolol * Trend BP * Adjust therapy as indicated (4) Hypothyroidism: Code(s): E03.9 - Hypothyroidism, unspecified Status: Acute Assessment and Plan: * Continue levothyroxine at 25mcg daily * TSH in the am * Adjust therapy as indicated (5) Hyperlipidemia: Code(s): E78.5 - Hyperlipidemia, unspecified Status: Acute Assessment and Plan: * Continue atorvastatin (6) Hyperkalemia: Code(s): E87.5 - Hyperkalemia Status: Acute Assessment and Plan: * K is 6.4 * Lokelma x 2 doses given * Repeat K in the afternoon * Continue to trend labs * Adjust therapy as indicated (7) 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: Code(s): E08.40 - Diabetes mellitus due to underlying condition with diabetic neuropathy, unspecified Status: Acute Assessment and Plan: * Continue gabapentin * Hold meloxicam due to occult positive * Continue to trend symptoms * Adjust therapy as indicated (8) Type 2 diabetes mellitus: Code(s): E11.9 - Type 2 diabetes mellitus without complications Status: Acute Assessment and Plan: * Glucose elevated at 322 * Change Levemir to Lantus 45 units daily * Continue aspart 15 units before meals, and jardiance * Hold metformin, trulicity * Hypoglycemia protocol * Trend glucose * adjust therapy as indicated Time Spent With Patient Time with patient: Greater than 35 minutes Subjective Date/time seen: 03/17/22 1045 Interval history: 03/17/22 104 Patient seems to be okay. Patient is stating that he is having some abdominal pain. He denies any chest pain, shortness a breath, headache, lightheaded or dizziness. He did state that he has had 1 episode of bloody diarrhea today he also stated that he was having multiple episodes of nausea vomiting last night. He is currently resting comfortably. 03/16/22? 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 hyperlipidemia, hypothyroidism? presents the ED [place] with abdominal pain , nausea vomiting. symptom onset over the last couple days worsening today with increased nausea vomiting.? of note patient takes meloxicam for headache and pain.? he denies any blood thinner use.? Patient has never had iss
--- NOTE | 2022-03-17 10:45 | PM.IMPN ---
Progress Note: A&P Assessment and Plan (1) Enterocolitis: Code(s): K52.9 - Noninfective gastroenteritis and colitis, unspecified Status: Acute Assessment and Plan: Abd/Pel CT shows bilateral fat-containing hernia, nondialated small and large bowel enterocolitis Stool cultures pending Continue Cirpo/flagyl WBC elevated at 14.7 GI consulted thank you for your help Trend labs Adjust therapy as indicated (2) GI bleed: Code(s): K92.2 - Gastrointestinal hemorrhage, unspecified Status: Acute Assessment and Plan: Occult blood positive HGB/HCT stable GI consulted Continue to trend H/H Transfuse as indicated (3) HTN (hypertension): Code(s): I10 - Essential (primary) hypertension Status: Acute Assessment and Plan: Current blood pressure is 137/76 Continue home amlodipine, lisinopril, metoprolol Trend BP Adjust therapy as indicated (4) Hypothyroidism: Code(s): E03.9 - Hypothyroidism, unspecified Status: Acute Assessment and Plan: Continue levothyroxine at 25mcg daily TSH in the am Adjust therapy as indicated (5) Hyperlipidemia: Code(s): E78.5 - Hyperlipidemia, unspecified Status: Acute Assessment and Plan: Continue atorvastatin (6) Hyperkalemia: Code(s): E87.5 - Hyperkalemia Status: Acute Assessment and Plan: K is 6.4 Lokelma x 2 doses given Repeat K in the afternoon Continue to trend labs Adjust therapy as indicated (7) 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: Code(s): E08.40 - Diabetes mellitus due to underlying condition with diabetic neuropathy, unspecified Status: Acute Assessment and Plan: Continue gabapentin Hold meloxicam due to occult positive Continue to trend symptoms Adjust therapy as indicated (8) Type 2 diabetes mellitus: Code(s): E11.9 - Type 2 diabetes mellitus without complications Status: Acute Assessment and Plan: Glucose elevated at 322 Change Levemir to Lantus 45 units daily Continue aspart 15 units before meals, and jardiance Hold metformin, trulicity Hypoglycemia protocol Trend glucose adjust therapy as indicated Time Spent With Patient Time with patient: Greater than 35 minutes Subjective Date/time seen: 03/17/22 1045 Interval history: 03/17/22 104 Patient seems to be okay. Patient is stating that he is having some abdominal pain. He denies any chest pain, shortness a breath, headache, lightheaded or dizziness. He did state that he has had 1 episode of bloody diarrhea today he also stated that he was having multiple episodes of nausea vomiting last night. He is currently resting comfortably. 03/16/22? 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 hyperlipidemia, hypothyroidism? presents the ED [place] with abdominal pain , nausea vomiting. symptom onset over the last couple days worsening today with increased nausea vomiting.? of note patient takes meloxicam for headache and pain.? he denies any blood thinner use.? Patient has never had issues gastric ulcers in the past.? He has never had a colonoscopy, colon cancer screening was with the cologaurd. my evaluation patient complains of abdominal pain? and states he did not realize he was having bloody diarrhea. In the ED in [place]: ? He was found to have enterocolitis on CT scan had an episode bloody mucus diarrhea. he was given a dose of Unasyn, IV fluids normal saline 150 cc/hour.? [facility].? He was afebrile in the ED, patient reported 101 fever at home.? WBC 16.6, hemoglobin stable at 14.8, lactate 2.1, lipase 105, stool ca
[2022-03-17 12:45] LABS: Glucose Point of Care 434 mg/dl (65-105)
[2022-03-17] MEDS: INSULIN ASPART (*BKC) 100 UNITS/ML 15 UNITS SUB-Q ×2 (13:00→17:12)
[2022-03-17] MEDS: LEVOTHYROXINE SODIUM 25 MCG TABLET PO (13:01)
[2022-03-17] MEDS: SODIUM CHLORIDE 0.9% IV 250 ML 999 ML IV CONT (13:06)
[2022-03-17 13:23] LABS: Hemoglobin A1C 9.9 % (<5.7)
--- NOTE | 2022-03-17 13:39 | WPDGICN ---
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: Code(s): E08.40 - Diabetes mellitus due to underlying condition with diabetic neuropathy, unspecified Status: Acute (5) Hyperkalemia: Code(s): E87.5 - Hyperkalemia Status: Acute Assessment and Plan: treated (6) Occult blood in stools: Code(s): R19.5 - Other fecal abnormalities Status: Acute Assessment and Plan: probably from colitis normal h/h we will arrange colonoscopy as outpatient in several more weeks since he never had one GI Consult Note Consult date/time: 03/17/22 13:39 Reason for consult: diarrhea, enterocolitis HPI: Fritz Sousa is a 71 year old male with?past medical history of 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 hyperlipidemia, hypothyroidism?who initially went to ED [place] with new onset of diffuse abdominal pain that was moderate along with nausea and vomiting for last 2 days. Also noted diarrhea yesterday and low grade fever. CT scan reviewed and noted enterocolitis, also + occult blood in stool but he denies overt gib, his h/h is normal. Today feeling better, he is hungry and no more diarrhea. Mild elevated lactic acid. Never had colonoscopy. Review of Systems Review of Systems: Constitutional: No Fever, No Chills, No Night Sweats, No Fatigue, No Malaise ENT/Mouth: No Hearing Changes, No Ear Pain, No Nasal Congestion, No Sinus Pain, No Hoarseness, No sore throat, No Rhinorrhea, No Swallowing Difficulty Eyes: No Eye Pain, No Redness, No Vision Changes Cardiovascular: No Chest Pain, No Palpitations, No Dyspnea on Exertion, No Orthopnea, No Claudication, No Edema Respiratory: No Cough, No Sputum, No Wheezing, No Shortness of Breath Gastrointestinal: Endorses nausea vomiting diarrhea, abdominal pain. Genitourinary: No Dysuria, No Urinary Frequency, No Hematuria, No Urinary Incontinence, No Urgency Musculoskeletal: No Arthralgias, No Myalgias, No Joint Swelling, No Joint Stiffness, No Back Pain Skin: No Skin Lesions, No Pruritis, No Hair Changes Neuro: No Weakness, No Numbness, No Paresthesias, No Loss of Consciousness, No Syncope, No Dizziness, No Headache Psych: No Anxiety/Panic, No Depression, No Insomnia Heme: No Bruising, No Bleeding Lymph: No Adenopathy Endocrine: No Polyuria, No Polydipsia, No Temperature Intolerance [facility] Past Medical History Medical History (Updated 03/17/22 @ 13:45 by Eliu Medrano MD) Abdominal pain Amputation of right great toe Bilateral leg pain Chronic back pain Elevated C-reactive protein (CRP) Gastroenteritis GERD (gastroesophageal reflux disease) HTN (hypertension) Hyperlipidemia Hypothyroidism Nausea and vomiting in adult Occult blood in stools Overweight Sleep apnea, unspecified Tobacco dependency Type 2 diabetes mellitus Surgical History Surgical History (Updated 03/16/22 @ 23:04 by Rosalina Suh DO) History of cataract surgery Family History Family History (Updated 03/16/22 @ 23:04 by Rosalina Suh DO) Mother Breast cancer Father Diabetes mellitus Social History Social History (Updated 03/16/22 @ 23:05 by Rosalina Suh DO) Social History: lives with , ambulates independently, retired Smoking status: Former smoker Second hand tobacco smoke exposure: Y
[2022-03-17 17:03] LABS: Hematocrit 46.5 % (42.0-52.0); Hemoglobin 14.9 g/dL (14.0-18.0)
[2022-03-17 17:25] LABS: Glucose Point of Care 295 mg/dl (65-105)
[2022-03-17 20:32] LABS: Glucose Point of Care 355 mg/dl (65-105)
[2022-03-17] MEDS: AMITRIPTYLINE HCL 25 MG TABLET 50 MG PO (20:35)
[2022-03-17] MEDS: GABAPENTIN 400 MG CAPSULE 1600 MG PO (20:36)
[2022-03-17] MEDS: INSULIN GLARGINE (*BKC) 100 UNITS/ML 23 UNITS SUB-Q (20:37)
[2022-03-18] VITALS (10 sets, daily range): BP systolic 122–164; BP diastolic 57–72; PULSE 91–106; RESP 18–20; TEMP 36.8–38.2; O2SAT 94–100
[2022-03-18] MEDS: CIPROFLOXACIN 400 MG/D5W 200ML 200 ML 200 MG IVPB (00:58)
[2022-03-18 05:23] LABS: Basophils Percent Auto 0.3 % (0.2-1.2); Eosinophils Absolute Auto 0.1 K/mm3 (0-0.3); Eosinophils Percent Auto 0.6 % (0-4.4); Hematocrit 41.6 % (42.0-52.0); Hemoglobin 13.4 g/dL (14.0-18.0); Immature Granulocyte Absolute 0.02 K/mm3 (0.00-0.031); Immature Granulocyte Percent A 0.2 % (0-0.5); Lymphocytes Absolute Auto 1.06 K/mm3 (0.9-3.2); Lymphocytes Percent Auto 10.6 % (18.3-44.2); Mean Corpuscular HGB Conc 32.2 g/dl (32-36); Mean Corpuscular Hemoglobin 29.1 pg (26-34); Mean Corpuscular Volume 90.2 fl (80-100); Mean Platelet Volume 12.2 fl (7.4-10.4); Monocytes Absolute Auto 0.6 K/mm3 (0.1-0.6); Monocytes Percent Auto 6.4 % (2.6-8.5); Neutrophils Absolute Auto 8.2 K/mm3 (1.3-6.7); Neutrophils Percent Auto 81.9 % (45.5-73.1); Platelet Count Result 163 k/mm3 (150-375); Red Blood Count 4.61 M/mm3 (4.6-6.20); Red Cell Distribution Width 15.3 % (11.5-14.5)
[2022-03-18 05:32] LABS: Alanine Aminotransferase 25 U/L (6-50); Albumin Level 3.5 g/dL (3.5-5.1); Alkaline Phosphatase 47 U/L (38-126); Anion Gap 9 mmol/L (8-16); Aspartate Amino Transferase 21 U/L (17-59); Bilirubin,Total 0.5 mg/dL (0.2-1.3); Blood Urea Nitrogen 28 mg/dL (9-20); Calcium 8.3 mg/dL (8.4-10.2); Carbon Dioxide 20 mmol/L (22-30); Chloride 102 mmol/L (98-107); Estimated CRCL calculation 61 ml/min; Estimated Glomerular Filt Rate > 60; Glucose 216 mg/dL (65-110); Magnesium 1.9 mg/dL (1.6-2.3); Potassium 3.9 mmol/L (3.4-5.0); Sodium 131 mmol/L (137-145)
[2022-03-18 08:14] LABS: Glucose Point of Care 207 mg/dl (65-105)
--- NOTE | 2022-03-18 08:44 | WPDGIPROGNO ---
Progress Note: A&P Assessment and Plan (1) SIRS (systemic inflammatory response syndrome): Code(s): R65.10 - Systemic inflammatory response syndrome (SIRS) of non-infectious origin without acute organ dysfunction Status: Acute Assessment and Plan: improving, from enterocolitis wbc normal today (2) Enterocolitis: Code(s): K52.9 - Noninfective gastroenteritis and colitis, unspecified Status: Acute Assessment and Plan: treated, on abx stool samples pending tolerating diet (3) Occult blood in stools: Code(s): R19.5 - Other fecal abnormalities Status: Acute Assessment and Plan: from colitis h/h stable no need of scope but I will arrange colonoscopy as outpatient in few more weeks when he is fully recovered (4) Abdominal pain: Code(s): R10.9 - Unspecified abdominal pain Status: Acute Assessment and Plan: improved (5) 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: Code(s): E08.40 - Diabetes mellitus due to underlying condition with diabetic neuropathy, unspecified Status: Acute Subjective Date/time seen: 03/18/22 08:44 Interval history: overall better Review of Systems Review of Systems: All systems reviewed & are unremarkable except as noted in HPI and below Exam Const: General: comfortable and no acute distress HENMT: Face/Nose/Sinus: Normal nares present Eyes: General: appearance normal, both eyes and all related structures Neck: Neck: no JVD Resp: Auscultation: clear to auscultation bilaterally Cardio: Rate: regular rate Rhythm: regular rhythm GI: Inspection: non-distended GI Palp: Yes Soft to palpation and No Tenderness to palpation present (GI) Other: hyperactive sound Skin: General skin exam: normal color Neuro: Speech: normal speech Motor exam (neuro): 5/5 motor strength present throughout Extrem: General: normal to inspection Psych: Mental Status: mental status grossly normal Objective Data Vital Signs Vital Signs: Vital Signs - 24 hr 03/17/22 10:15 03/17/22 09:45 03/17/22 12:00 Temperature Pulse Rate 102 H 105 H Respiratory Rate Blood Pressure Pulse Oximetry Oxygen Delivery Room Air 03/17/22 13:55 03/17/22 16:00 03/17/22 20:50 Temperature 98.5 F Pulse Rate 100 93 96 Respiratory Rate 16 Blood Pressure 123/66 Pulse Oximetry 94 Oxygen Delivery 03/17/22 20:50 03/18/22 00:00 03/18/22 00:00 Temperature 98.4 F Pulse Rate 96 98 95 Respiratory Rate 18 20 Blood Pressure 128/72 Pulse Oximetry 94 94 Oxygen Delivery Room Air 03/18/22 04:00 03/18/22 04:00 Temperature 98.9 F Pulse Rate 99 105 H Respiratory Rate 18 Blood Pressure 145/67 H Pulse Oximetry 95 Oxygen Delivery Intake/Output Intake/Output: Intake & Output 03/15/22 03/16/22 03/17/22 03/18/22 23:59 23:59 23:59 23:59 Intake Total 4190 100 Output Total 2675 800 Balance 1515 -700 Meds/Results Medications: Active Medications Generic Name Dose Route Start Last Admin Trade Name Freq PRN Reason Stop Dose Admin Amitriptyline HCl 50 mg 03/17/22 21:00 03/17/22 20:35 Amitriptyline Hcl 25 Mg Tablet PO 50 mg HS JO-ANN Administration Amlodipine Besylate 10 mg 03/17/22 09:00 03/17/22 10:15 Amlodipine Besylate 5 Mg Tablet PO 10 mg DAILY JO-ANN Administration Atorvastatin Calcium 10 mg 03/17/22 09:00 03/17/22 10:16 Atorvastatin 10 Mg Tablet PO 10 mg DAILY JO-ANN Administration Dextrose 12.5 gm 03/17/22 08:27 Dextrose 50% 25 Gm/50 Ml Syringe IV PUSH PRN PRN Hypoglycemia Protocol Empagliflozin 10 mg 03/17/22 09:00 03/17/22 10:16 Empagliflozin 10 Mg Tablet PO 10 mg DAILY JO-ANN Administration Gabapentin 800 mg 03/17/22 14:00 03/17/22 14:47 Gabapentin 400 Mg Capsule PO 800 mg QAM JO-ANN Administration Gabapentin 1,600 mg 03/17/22 21:00 03/17/22 20:36 Gabapentin 400 Mg Capsule
[2022-03-18] MEDS: INSULIN ASPART (*BKC) 100 UNITS/ML 15 UNITS SUB-Q ×3 (09:22→17:43)
[2022-03-18] MEDS: INSULIN ASPART (*BKC) 100 UNITS/ML SUB-Q ×3 (09:23→17:44)
[2022-03-18] MEDS: ATORVASTATIN 10 MG TABLET PO (09:26)
[2022-03-18] MEDS: amLODIPine BESYLATE 5 MG TABLET 10 MG PO (09:26)
[2022-03-18] MEDS: GABAPENTIN 400 MG CAPSULE 800 MG PO (09:27)
[2022-03-18] MEDS: EMPAGLIFLOZIN 10 MG TABLET PO (09:27)
[2022-03-18] MEDS: LEVOTHYROXINE SODIUM 25 MCG TABLET PO (09:27)
[2022-03-18] MEDS: lisinopriL 20 MG TABLET 40 MG PO (09:27)
[2022-03-18] MEDS: METOPROLOL SUCCINATE EXT REL 100 MG TABCR PO (09:27)
--- NOTE | 2022-03-18 10:30 | PM.IMPN ---
Progress Note: A&P Assessment and Plan (1) Enterocolitis: Code(s): K52.9 - Noninfective gastroenteritis and colitis, unspecified Status: Acute Assessment and Plan: Abd/Pel CT shows bilateral fat-containing hernia, nondilated small and large bowel enterocolitis Stool cultures pending Continue Cirpo/flagyl WBC trending down currently 10.0 GI consulted thank you for your help Trend labs Adjust therapy as indicated Low fat bland diet (2) GI bleed: Code(s): K92.2 - Gastrointestinal hemorrhage, unspecified Status: Acute Assessment and Plan: Occult blood positive HGB/HCT 13.4/91.6 GI consulted Continue to trend H/H Transfuse as indicated (3) HTN (hypertension): Code(s): I10 - Essential (primary) hypertension Status: Acute Assessment and Plan: Current blood pressure is 164/72 Continue home amlodipine, lisinopril, metoprolol Trend BP Adjust therapy as indicated (4) Hypothyroidism: Code(s): E03.9 - Hypothyroidism, unspecified Status: Acute Assessment and Plan: Continue levothyroxine at 25mcg daily TSH 1.070 Adjust therapy as indicated (5) Hyperlipidemia: Code(s): E78.5 - Hyperlipidemia, unspecified Status: Acute Assessment and Plan: Continue atorvastatin (6) Hyperkalemia: Code(s): E87.5 - Hyperkalemia Status: Acute Assessment and Plan: K is 3.9 Lokelma x 2 doses was sufficient Continue to trend labs Adjust therapy as indicated (7) 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: Code(s): E08.40 - Diabetes mellitus due to underlying condition with diabetic neuropathy, unspecified Status: Acute Assessment and Plan: Continue gabapentin Hold meloxicam due to occult positive Continue to trend symptoms Adjust therapy as indicated (8) Type 2 diabetes mellitus: Code(s): E11.9 - Type 2 diabetes mellitus without complications Status: Acute Assessment and Plan: Glucose elevated at 216 Change Levemir to Lantus 45 units daily Continue aspart 15 units before meals, and Jardiance Hold metformin, Trulicity Hypoglycemia protocol Trend glucose adjust therapy as indicated (9) Sepsis: Code(s): A41.9 - Sepsis, unspecified organism Status: Acute Assessment and Plan: Patient meets sirs with a leukocytosis, ? Tachycardia, hypothermia, tachypnea with a source of infection being in the abdomen. Continue antibiotics IV hydration on board blood cultures pending WBCs elevated at 14.7 trend labs (10) Fever: Code(s): R50.9 - Fever, unspecified Status: Acute Assessment and Plan: Fever as high as 100.7 Blood cultures pending Continue to trend Continue antibiotics Time Spent With Patient Time with patient: Greater than 35 minutes Subjective Date/time seen: 03/18/22 1030 Interval history: 03/18/22 1030 Patient was eating ice. Patient stated that he is feeling okay today. He denies any chest pain, shortness a breath, abdominal pain, nausea, vomiting, diarrhea or constipation. Patient was noted to have slight temperature last night. Blood cultures have been drawn. Will give bolus due to tachycardia. 03/17/22 1045 Patient seems to be okay. Patient is stating that he is having some abdominal pain. He denies any chest pain, shortness a breath, headache, lightheaded or dizziness. He did state that he has had 1 episode of bloody diarrhea today he also stated that he was having multiple episodes of nausea vomiting last night. He is currently resting comfortably. 03/16/22? 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 hyperlipidemia, hypothyroidi
--- NOTE | 2022-03-18 10:30 | P.PNIM_ITS ---
Progress Note: A&P Assessment and Plan (1) Enterocolitis: Code(s): K52.9 - Noninfective gastroenteritis and colitis, unspecified Status: Acute Assessment and Plan: * Abd/Pel CT shows bilateral fat-containing hernia, nondilated small and large bowel enterocolitis * Stool cultures pending * Continue Cirpo/flagyl * WBC trending down currently 10.0 * GI consulted thank you for your help * Trend labs * Adjust therapy as indicated * Low fat bland diet (2) GI bleed: Code(s): K92.2 - Gastrointestinal hemorrhage, unspecified Status: Acute Assessment and Plan: * Occult blood positive * HGB/HCT 13.4/91.6 * GI consulted * Continue to trend H/H * Transfuse as indicated (3) HTN (hypertension): Code(s): I10 - Essential (primary) hypertension Status: Acute Assessment and Plan: * Current blood pressure is 164/72 * Continue home amlodipine, lisinopril, metoprolol * Trend BP * Adjust therapy as indicated (4) Hypothyroidism: Code(s): E03.9 - Hypothyroidism, unspecified Status: Acute Assessment and Plan: * Continue levothyroxine at 25mcg daily * TSH 1.070 * Adjust therapy as indicated (5) Hyperlipidemia: Code(s): E78.5 - Hyperlipidemia, unspecified Status: Acute Assessment and Plan: * Continue atorvastatin (6) Hyperkalemia: Code(s): E87.5 - Hyperkalemia Status: Acute Assessment and Plan: * K is 3.9 * Lokelma x 2 doses was sufficient * Continue to trend labs * Adjust therapy as indicated (7) 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: Code(s): E08.40 - Diabetes mellitus due to underlying condition with diabetic neuropathy, unspecified Status: Acute Assessment and Plan: * Continue gabapentin * Hold meloxicam due to occult positive * Continue to trend symptoms * Adjust therapy as indicated (8) Type 2 diabetes mellitus: Code(s): E11.9 - Type 2 diabetes mellitus without complications Status: Acute Assessment and Plan: * Glucose elevated at 216 * Change Levemir to Lantus 45 units daily * Continue aspart 15 units before meals, and Jardiance * Hold metformin, Trulicity * Hypoglycemia protocol * Trend glucose * adjust therapy as indicated (9) Sepsis: Code(s): A41.9 - Sepsis, unspecified organism Status: Acute Assessment and Plan: * Patient meets sirs with a leukocytosis, ? Tachycardia, hypothermia, tachypnea with a source of infection being in the abdomen. * Continue antibiotics * IV hydration on board * blood cultures pending * WBCs elevated at 14.7 * trend labs (10) Fever: Code(s): R50.9 - Fever, unspecified Status: Acute Assessment and Plan: * Fever as high as 100.7 * Blood cultures pending * Continue to trend * Continue antibiotics Time Spent With Patient Time with patient: Greater than 35 minutes Subjective Date/time seen: 03/18/22 1030 Interval history: 03/18/221029 Patient was eating ice. Patient stated that he is feeling okay today. He denies any chest pain, shortness a breath, abdominal pain, n
[2022-03-18] MEDS: SODIUM CHLORIDE 0.9% IV 500 ML IV CONT (11:26)
[2022-03-18 12:01] LABS: Glucose Point of Care > 500 mg/dl (65-105)
[2022-03-18 12:01] LABS: Glucose Point of Care 340 mg/dl (65-105)
[2022-03-18 12:01] LABS: Glucose Point of Care 361 mg/dl (65-105)
[2022-03-18] MEDS: metroNIDAZOLE 250 MG TABLET 500 MG PO ×2 (13:42→21:00)
[2022-03-18 17:09] LABS: Glucose Point of Care 283 mg/dl (65-105)
[2022-03-18] MEDS: CIPROFLOXACIN 500 MG TAB PO (20:58)
[2022-03-18] MEDS: GABAPENTIN 400 MG CAPSULE 1600 MG PO (20:58)
[2022-03-18] MEDS: AMITRIPTYLINE HCL 25 MG TABLET 50 MG PO (20:59)
[2022-03-18 21:06] LABS: Glucose Point of Care 405 mg/dl (65-105)
[2022-03-18] MEDS: INSULIN GLARGINE (*BKC) 100 UNITS/ML 23 UNITS SUB-Q (21:06)
[2022-03-19] VITALS (10 sets, daily range): BP systolic 119–136; BP diastolic 58–71; PULSE 88–106; RESP 16–18; TEMP 36.3–37; O2SAT 92–98
[2022-03-19 05:39] LABS: Basophils Absolute Auto 0.1 K/mm3 (0.0-0.1); Basophils Percent Auto 0.6 % (0.2-1.2); Eosinophils Absolute Auto 0.2 K/mm3 (0-0.3); Eosinophils Percent Auto 1.4 % (0-4.4); Hematocrit 39.8 % (42.0-52.0); Hemoglobin 12.7 g/dL (14.0-18.0); Immature Granulocyte Absolute 0.07 K/mm3 (0.00-0.031); Immature Granulocyte Percent A 0.6 % (0-0.5); Lymphocytes Absolute Auto 1.12 K/mm3 (0.9-3.2); Mean Corpuscular HGB Conc 31.9 g/dl (32-36); Mean Corpuscular Hemoglobin 28.4 pg (26-34); Mean Platelet Volume 12.1 fl (7.4-10.4); Monocytes Absolute Auto 1.1 K/mm3 (0.1-0.6); Monocytes Percent Auto 9.6 % (2.6-8.5); Neutrophils Absolute Auto 8.7 K/mm3 (1.3-6.7); Neutrophils Percent Auto 77.8 % (45.5-73.1); Platelet Count Result 165 k/mm3 (150-375); Red Blood Count 4.47 M/mm3 (4.6-6.20); Red Cell Distribution Width 14.9 % (11.5-14.5); White Blood Count 11.2 K/mm3 (4.5-10.0)
[2022-03-19 05:46] LABS: Alanine Aminotransferase 23 U/L (6-50); Albumin Level 3.4 g/dL (3.5-5.1); Alkaline Phosphatase 51 U/L (38-126); Anion Gap 12 mmol/L (8-16); Aspartate Amino Transferase 21 U/L (17-59); Bilirubin,Total 0.5 mg/dL (0.2-1.3); Blood Urea Nitrogen 25 mg/dL (9-20); Calcium 8.2 mg/dL (8.4-10.2); Carbon Dioxide 18 mmol/L (22-30); Chloride 103 mmol/L (98-107); Estimated CRCL calculation 67 ml/min; Estimated Glomerular Filt Rate > 60; Glucose 167 mg/dL (65-110); Magnesium 1.8 mg/dL (1.6-2.3); Sodium 133 mmol/L (137-145)
[2022-03-19] MEDS: metroNIDAZOLE 250 MG TABLET 500 MG PO ×3 (06:04→21:04)
[2022-03-19] MEDS: LEVOTHYROXINE SODIUM 25 MCG TABLET PO (06:04)
[2022-03-19 08:22] LABS: Glucose Point of Care 176 mg/dl (65-105)
--- NOTE | 2022-03-19 08:30 | PM.IMPN ---
Progress Note: A&P Assessment and Plan (1) Enterocolitis: Code(s): K52.9 - Noninfective gastroenteritis and colitis, unspecified Status: Acute Assessment and Plan: Abd/Pel CT shows bilateral fat-containing hernia, nondilated small and large bowel enterocolitis Stool cultures pending Continue Cirpo/flagyl WBC stable currently 11.2 GI consulted thank you for your help Trend labs Adjust therapy as indicated Low fat bland diet (2) GI bleed: Code(s): K92.2 - Gastrointestinal hemorrhage, unspecified Status: Acute Assessment and Plan: Occult blood positive HGB/HCT 12.7/34.8 GI consulted Continue to trend H/H Transfuse as indicated (3) HTN (hypertension): Code(s): I10 - Essential (primary) hypertension Status: Acute Assessment and Plan: Current blood pressure is 129/71 Continue home amlodipine, lisinopril, metoprolol Trend BP Adjust therapy as indicated (4) Hypothyroidism: Code(s): E03.9 - Hypothyroidism, unspecified Status: Acute Assessment and Plan: Continue levothyroxine at 25mcg daily TSH 1.070 Adjust therapy as indicated (5) Hyperlipidemia: Code(s): E78.5 - Hyperlipidemia, unspecified Status: Acute Assessment and Plan: Continue atorvastatin (6) Hyperkalemia: Code(s): E87.5 - Hyperkalemia Status: Acute Assessment and Plan: K is 4.0 Lokelma x 2 doses was sufficient Continue to trend labs Adjust therapy as indicated (7) 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: Code(s): E08.40 - Diabetes mellitus due to underlying condition with diabetic neuropathy, unspecified Status: Acute Assessment and Plan: Continue gabapentin Hold meloxicam due to occult positive Continue to trend symptoms Adjust therapy as indicated (8) Type 2 diabetes mellitus: Code(s): E11.9 - Type 2 diabetes mellitus without complications Status: Acute Assessment and Plan: Glucose elevated at 167 Change Levemir to Lantus 45 units daily Continue aspart 15 units before meals, and Jardiance Hold metformin, Trulicity Hypoglycemia protocol Trend glucose adjust therapy as indicated (9) Sepsis: Code(s): A41.9 - Sepsis, unspecified organism Status: Acute Assessment and Plan: Patient meets sirs with a leukocytosis, ? Tachycardia, hypothermia, tachypnea with a source of infection being in the abdomen. Continue antibiotics IV hydration on board blood cultures pending WBCs stable currently 11.2 trend labs (10) Fever: Code(s): R50.9 - Fever, unspecified Status: Acute Assessment and Plan: Fever as high as 100.7 Blood cultures pending Continue to trend Continue antibiotics Subjective Date/time seen: 03/19/22 08:30 Interval history: 03/19/22 0830 Patient seems to be doing well today. He denies any chest pain, shortness a breath, nausea, vomiting, diarrhea, constipation, weakness or fatigue. Patient did state that he is sometimes a little unsteady when he walks. I did walk him without a walker and he was kind of unstable. Patient did well with a walker and was able to walk down the hallway. His states that he is normally not weak or have issues with walking. It was decided for patient to go to rehab. 03/18/22 1030 Patient was eating ice. Patient stated that he is feeling okay today. He denies any chest pain, shortness a breath, abdominal pain, nausea, vomiting, diarrhea or constipation. Patient was noted to have slight temperature last night. Blood cultures have been drawn. Will give bolus due to tachycardia. 03/17/22 1045 Patient seems to be okay. Patient is stating that he is having some abdominal pain. He denies any chest pain, shortness a michael
--- NOTE | 2022-03-19 08:30 | P.PNIM_ITS ---
Progress Note: A&P Assessment and Plan (1) Enterocolitis: Code(s): K52.9 - Noninfective gastroenteritis and colitis, unspecified Status: Acute Assessment and Plan: * Abd/Pel CT shows bilateral fat-containing hernia, nondilated small and large bowel enterocolitis * Stool cultures pending * Continue Cirpo/flagyl * WBC stable currently 11.2 * GI consulted thank you for your help * Trend labs * Adjust therapy as indicated * Low fat bland diet (2) GI bleed: Code(s): K92.2 - Gastrointestinal hemorrhage, unspecified Status: Acute Assessment and Plan: * Occult blood positive * HGB/HCT 12.7/34.8 * GI consulted * Continue to trend H/H * Transfuse as indicated (3) HTN (hypertension): Code(s): I10 - Essential (primary) hypertension Status: Acute Assessment and Plan: * Current blood pressure is 129/71 * Continue home amlodipine, lisinopril, metoprolol * Trend BP * Adjust therapy as indicated (4) Hypothyroidism: Code(s): E03.9 - Hypothyroidism, unspecified Status: Acute Assessment and Plan: * Continue levothyroxine at 25mcg daily * TSH 1.070 * Adjust therapy as indicated (5) Hyperlipidemia: Code(s): E78.5 - Hyperlipidemia, unspecified Status: Acute Assessment and Plan: * Continue atorvastatin (6) Hyperkalemia: Code(s): E87.5 - Hyperkalemia Status: Acute Assessment and Plan: * K is 4.0 * Lokelma x 2 doses was sufficient * Continue to trend labs * Adjust therapy as indicated (7) 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: Code(s): E08.40 - Diabetes mellitus due to underlying condition with diabetic neuropathy, unspecified Status: Acute Assessment and Plan: * Continue gabapentin * Hold meloxicam due to occult positive * Continue to trend symptoms * Adjust therapy as indicated (8) Type 2 diabetes mellitus: Code(s): E11.9 - Type 2 diabetes mellitus without complications Status: Acute Assessment and Plan: * Glucose elevated at 167 * Change Levemir to Lantus 45 units daily * Continue aspart 15 units before meals, and Jardiance * Hold metformin, Trulicity * Hypoglycemia protocol * Trend glucose * adjust therapy as indicated (9) Sepsis: Code(s): A41.9 - Sepsis, unspecified organism Status: Acute Assessment and Plan: * Patient meets sirs with a leukocytosis, ? Tachycardia, hypothermia, tachypnea with a source of infection being in the abdomen. * Continue antibiotics * IV hydration on board * blood cultures pending * WBCs stable currently 11.2 * trend labs (10) Fever: Code(s): R50.9 - Fever, unspecified Status: Acute Assessment and Plan: * Fever as high as 100.7 * Blood cultures pending * Continue to trend * Continue antibiotics Subjective Date/time seen: 03/19/22 08:30 Interval history: 03/19/22829 Patient seems to be doing well today. He denies any chest pain, shortness a breath, nausea, vomiting, diarrhea, constipation, weakness or fatigue. Patient did state that he is sometimes a little unsteady whe
[2022-03-19] MEDS: amLODIPine BESYLATE 5 MG TABLET 10 MG PO (08:48)
[2022-03-19] MEDS: ATORVASTATIN 10 MG TABLET PO (08:48)
[2022-03-19] MEDS: CIPROFLOXACIN 500 MG TAB PO ×2 (08:48→21:05)
[2022-03-19] MEDS: GABAPENTIN 400 MG CAPSULE 800 MG PO (08:48)
[2022-03-19] MEDS: EMPAGLIFLOZIN 10 MG TABLET PO (08:48)
[2022-03-19] MEDS: METOPROLOL SUCCINATE EXT REL 100 MG TABCR PO (08:49)
[2022-03-19] MEDS: lisinopriL 20 MG TABLET 40 MG PO (08:49)
[2022-03-19] MEDS: INSULIN ASPART (*BKC) 100 UNITS/ML 15 UNITS SUB-Q ×3 (09:39→18:05)
[2022-03-19] MEDS: SODIUM CHLORIDE 0.9% IV 500 ML 999 ML IV CONT (11:07)
[2022-03-19 12:19] LABS: Glucose Point of Care 181 mg/dl (65-105)
--- NOTE | 2022-03-19 12:38 | WPDGIPROGNO ---
Progress Note: A&P Assessment and Plan (1) SIRS (systemic inflammatory response syndrome): Code(s): R65.10 - Systemic inflammatory response syndrome (SIRS) of non-infectious origin without acute organ dysfunction Status: Acute Assessment and Plan: resolved, from enterocolitis he is going today with low fiber diet and will complete oral abx (2) Enterocolitis: Code(s): K52.9 - Noninfective gastroenteritis and colitis, unspecified Status: Acute Assessment and Plan: treated, on abx tolerating diet (3) Occult blood in stools: Code(s): R19.5 - Other fecal abnormalities Status: Acute Assessment and Plan: from colitis h/h stable I will arrange colonoscopy as outpatient in few more weeks when he is fully recovered (4) Abdominal pain: Code(s): R10.9 - Unspecified abdominal pain Status: Acute Assessment and Plan: resolved (5) 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: Code(s): E08.40 - Diabetes mellitus due to underlying condition with diabetic neuropathy, unspecified Status: Acute Subjective Date/time seen: 03/19/22 12:38 Interval history: doing well, he is going home Review of Systems Review of Systems: All systems reviewed & are unremarkable except as noted in HPI and below Exam Const: General: comfortable and no acute distress HENMT: Face/Nose/Sinus: Normal nares present Eyes: General: appearance normal, both eyes and all related structures Neck: Neck: no JVD Resp: Auscultation: clear to auscultation bilaterally Cardio: Rate: regular rate Rhythm: regular rhythm GI: Inspection: non-distended GI Palp: Yes Soft to palpation and No Tenderness to palpation present (GI) Other: hyperactive sound Skin: General skin exam: normal color Neuro: Speech: normal speech Motor exam (neuro): 5/5 motor strength present throughout Extrem: General: normal to inspection Psych: Mental Status: mental status grossly normal Objective Data Vital Signs Vital Signs: Vital Signs - 24 hr 03/18/22 16:00 03/18/22 16:00 03/18/22 20:34 Temperature 98.9 F 98.3 F Pulse Rate 91 94 93 Respiratory Rate 18 18 Blood Pressure 126/60 122/66 Pulse Oximetry 100 96 Oxygen Delivery 03/18/22 21:00 03/18/22 21:00 03/19/22 00:08 Temperature 98.6 F Pulse Rate 96 93 89 Respiratory Rate 18 18 Blood Pressure 124/65 Pulse Oximetry 96 93 Oxygen Delivery Room Air 03/19/22 00:00 03/19/22 04:00 03/19/22 04:37 Temperature 98.2 F Pulse Rate 97 100 101 H Respiratory Rate 18 Blood Pressure 129/71 Pulse Oximetry 94 Oxygen Delivery 03/19/22 08:00 03/19/22 08:49 03/19/22 09:13 Temperature Pulse Rate 106 H 104 H Respiratory Rate Blood Pressure Pulse Oximetry Oxygen Delivery Room Air 03/19/22 10:01 03/19/22 10:23 Temperature Pulse Rate Respiratory Rate Blood Pressure Pulse Oximetry 92 Oxygen Delivery Room Air Room Air Intake/Output Intake/Output: Intake & Output 03/16/22 03/17/22 03/18/22 03/19/22 23:59 23:59 23:59 23:59 Intake Total 4190 2770 1040 Output Total 2675 1200 1050 Balance 1515 1570 -10 Meds/Results Medications: Active Medications Generic Name Dose Route Start Last Admin Trade Name Freq PRN Reason Stop Dose Admin Amitriptyline HCl 50 mg 03/17/22 21:00 03/18/22 20:59 Amitriptyline Hcl 25 Mg Tablet PO 50 mg HS JO-ANN Administration Amlodipine Besylate 10 mg 03/17/22 09:00 03/19/22 08:48 Amlodipine Besylate 5 Mg Tablet PO 10 mg DAILY JO-ANN Administration Atorvastatin Calcium 10 mg 03/17/22 09:00 03/19/22 08:48 Atorvastatin 10 Mg Tablet PO 10 mg DAILY JO-ANN Administration Ciprofloxacin 500 mg 03/18/22 21:00 03/19/22 08:48 Ciprofloxacin 500 Mg Tab PO 500 mg Q12HR JO-ANN Administration Dextrose 12.5 gm 03/17/22 08:27 Dextrose 50% 25 Gm/50 Ml Syringe IV PUSH PRN PRN Hypogl
[2022-03-19 17:04] LABS: Glucose Point of Care 130 mg/dl (65-105)
[2022-03-19 20:41] LABS: Glucose Point of Care 133 mg/dl (65-105)
[2022-03-19] MEDS: GABAPENTIN 400 MG CAPSULE 1600 MG PO (21:04)
[2022-03-19] MEDS: AMITRIPTYLINE HCL 25 MG TABLET 50 MG PO (21:07)
[2022-03-19] MEDS: INSULIN GLARGINE (*BKC) 100 UNITS/ML 23 UNITS SUB-Q (21:08)
[2022-03-20 00:05] VITALS: BP 120/86; PULSE 94; RESP 18; TEMP 36.6; O2SAT 98
[2022-03-20 04:55] VITALS: BP 138/60; PULSE 94; RESP 18; TEMP 36.6; O2SAT 97
[2022-03-20] MEDS: metroNIDAZOLE 250 MG TABLET 500 MG PO ×3 (05:32→20:29)
[2022-03-20] MEDS: LEVOTHYROXINE SODIUM 25 MCG TABLET PO (05:32)
[2022-03-20 05:44] LABS: Alanine Aminotransferase 21 U/L (6-50); Albumin Level 3.3 g/dL (3.5-5.1); Alkaline Phosphatase 52 U/L (38-126); Anion Gap 14 mmol/L (8-16); Aspartate Amino Transferase 23 U/L (17-59); Basophils Absolute Auto 0.1 K/mm3 (0.0-0.1); Basophils Percent Auto 0.7 % (0.2-1.2); Bilirubin,Total 0.4 mg/dL (0.2-1.3); Blood Urea Nitrogen 23 mg/dL (9-20); Calcium 8.3 mg/dL (8.4-10.2); Carbon Dioxide 20 mmol/L (22-30); Chloride 101 mmol/L (98-107); Eosinophils Absolute Auto 0.2 K/mm3 (0-0.3); Eosinophils Percent Auto 2.4 % (0-4.4); Estimated CRCL calculation 67 ml/min; Estimated Glomerular Filt Rate > 60; Glucose 133 mg/dL (65-110); Hematocrit 38.9 % (42.0-52.0); Hemoglobin 12.7 g/dL (14.0-18.0); Immature Granulocyte Absolute 0.05 K/mm3 (0.00-0.031); Immature Granulocyte Percent A 0.5 % (0-0.5); Lymphocytes Absolute Auto 1.27 K/mm3 (0.9-3.2); Lymphocytes Percent Auto 13.2 % (18.3-44.2); Magnesium 1.9 mg/dL (1.6-2.3); Mean Corpuscular HGB Conc 32.6 g/dl (32-36); Mean Corpuscular Hemoglobin 28.5 pg (26-34); Mean Corpuscular Volume 87.2 fl (80-100); Mean Platelet Volume 12.1 fl (7.4-10.4); Neutrophils Percent Auto 73.2 % (45.5-73.1); Platelet Count Result 164 k/mm3 (150-375); Potassium 3.8 mmol/L (3.4-5.0); Red Blood Count 4.46 M/mm3 (4.6-6.20); Red Cell Distribution Width 14.7 % (11.5-14.5); Sodium 135 mmol/L (137-145); White Blood Count 9.6 K/mm3 (4.5-10.0)
[2022-03-20 08:39] LABS: Glucose Point of Care 145 mg/dl (65-105)
[2022-03-20] MEDS: lisinopriL 20 MG TABLET 40 MG PO (09:08)
[2022-03-20] MEDS: EMPAGLIFLOZIN 10 MG TABLET PO (09:08)
[2022-03-20] MEDS: amLODIPine BESYLATE 5 MG TABLET 10 MG PO (09:08)
[2022-03-20] MEDS: GABAPENTIN 400 MG CAPSULE 800 MG PO (09:08)
[2022-03-20] MEDS: CIPROFLOXACIN 500 MG TAB PO ×2 (09:08→20:29)
[2022-03-20] MEDS: ATORVASTATIN 10 MG TABLET PO (09:08)
[2022-03-20 09:10] VITALS: PULSE 91
[2022-03-20] MEDS: METOPROLOL SUCCINATE EXT REL 100 MG TABCR PO (09:10)
[2022-03-20] MEDS: INSULIN ASPART (*BKC) 100 UNITS/ML 15 UNITS SUB-Q ×3 (09:18→17:44)
--- NOTE | 2022-03-20 09:45 | PM.IMPN ---
Progress Note: A&P Assessment and Plan (1) Enterocolitis: Code(s): K52.9 - Noninfective gastroenteritis and colitis, unspecified Status: Acute Assessment and Plan: Abd/Pel CT shows bilateral fat-containing hernia, nondilated small and large bowel enterocolitis Stool cultures pending Continue Cirpo/flagyl WBC stable currently 9.6 GI consulted thank you for your help Trend labs Adjust therapy as indicated Low fat bland diet (2) GI bleed: Code(s): K92.2 - Gastrointestinal hemorrhage, unspecified Status: Acute Assessment and Plan: Occult blood positive HGB/HCT 12.7/38.9 GI consulted Continue to trend H/H Transfuse as indicated (3) HTN (hypertension): Code(s): I10 - Essential (primary) hypertension Status: Acute Assessment and Plan: Current blood pressure is 138/60 Continue home amlodipine, lisinopril, metoprolol Trend BP Adjust therapy as indicated (4) Hypothyroidism: Code(s): E03.9 - Hypothyroidism, unspecified Status: Acute Assessment and Plan: Continue levothyroxine at 25mcg daily TSH 1.070 Adjust therapy as indicated (5) Hyperlipidemia: Code(s): E78.5 - Hyperlipidemia, unspecified Status: Acute Assessment and Plan: Continue atorvastatin (6) Hyperkalemia: Code(s): E87.5 - Hyperkalemia Status: Acute Assessment and Plan: K is 3.8 Lokelma x 2 doses was sufficient Continue to trend labs Adjust therapy as indicated resolved (7) 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: Code(s): E08.40 - Diabetes mellitus due to underlying condition with diabetic neuropathy, unspecified Status: Acute Assessment and Plan: Continue gabapentin Hold meloxicam due to occult positive Continue to trend symptoms Adjust therapy as indicated (8) Type 2 diabetes mellitus: Code(s): E11.9 - Type 2 diabetes mellitus without complications Status: Acute Assessment and Plan: Glucose elevated at 133 Change Levemir to Lantus 45 units daily Continue aspart 15 units before meals, and Jardiance Hold metformin, Trulicity Hypoglycemia protocol Trend glucose adjust therapy as indicated (9) Sepsis: Code(s): A41.9 - Sepsis, unspecified organism Status: Acute Assessment and Plan: Patient meets sirs with a leukocytosis, ? Tachycardia, hypothermia, tachypnea with a source of infection being in the abdomen. Continue antibiotics IV hydration on board blood cultures pending WBCs stable currently 9.6 trend labs (10) Fever: Code(s): R50.9 - Fever, unspecified Status: Acute Assessment and Plan: Fever as high as 100.7 Blood cultures pending Continue to trend Continue antibiotics resolved Time Spent With Patient Time with patient: 25 - 35 minutes Subjective Date/time seen: 03/20/22944 Interval history: 03/20/22944 Patient is doing well sit in a chair today. He denies any chest pain, shortness a breath, nausea, vomiting, diarrhea, constipation, weakness or fatigue. Patient is just awaiting rehab at this time. 03/19/22 08 Patient seems to be doing well today. He denies any chest pain, shortness a breath, nausea, vomiting, diarrhea, constipation, weakness or fatigue. Patient did state that he is sometimes a little unsteady when he walks. I did walk him without a walker and he was kind of unstable. Patient did well with a walker and was able to walk down the hallway. His states that he is normally not weak or have issues with walking. It was decided for patient to go to rehab. 03/18/22 1030 Patient was eating ice. Patient stated that he is feeling okay today. He denies any chest pain, shortness a breath, abdominal pain, nausea, vomiting, luis
--- NOTE | 2022-03-20 09:45 | P.PNIM_ITS ---
Progress Note: A&P Assessment and Plan (1) Enterocolitis: Code(s): K52.9 - Noninfective gastroenteritis and colitis, unspecified Status: Acute Assessment and Plan: * Abd/Pel CT shows bilateral fat-containing hernia, nondilated small and large bowel enterocolitis * Stool cultures pending * Continue Cirpo/flagyl * WBC stable currently 9.6 * GI consulted thank you for your help * Trend labs * Adjust therapy as indicated * Low fat bland diet (2) GI bleed: Code(s): K92.2 - Gastrointestinal hemorrhage, unspecified Status: Acute Assessment and Plan: * Occult blood positive * HGB/HCT 12.7/38.9 * GI consulted * Continue to trend H/H * Transfuse as indicated (3) HTN (hypertension): Code(s): I10 - Essential (primary) hypertension Status: Acute Assessment and Plan: * Current blood pressure is 138/60 * Continue home amlodipine, lisinopril, metoprolol * Trend BP * Adjust therapy as indicated (4) Hypothyroidism: Code(s): E03.9 - Hypothyroidism, unspecified Status: Acute Assessment and Plan: * Continue levothyroxine at 25mcg daily * TSH 1.070 * Adjust therapy as indicated (5) Hyperlipidemia: Code(s): E78.5 - Hyperlipidemia, unspecified Status: Acute Assessment and Plan: * Continue atorvastatin (6) Hyperkalemia: Code(s): E87.5 - Hyperkalemia Status: Acute Assessment and Plan: * K is 3.8 * Lokelma x 2 doses was sufficient * Continue to trend labs * Adjust therapy as indicated * resolved (7) 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: Code(s): E08.40 - Diabetes mellitus due to underlying condition with diabetic neuropathy, unspecified Status: Acute Assessment and Plan: * Continue gabapentin * Hold meloxicam due to occult positive * Continue to trend symptoms * Adjust therapy as indicated (8) Type 2 diabetes mellitus: Code(s): E11.9 - Type 2 diabetes mellitus without complications Status: Acute Assessment and Plan: * Glucose elevated at 133 * Change Levemir to Lantus 45 units daily * Continue aspart 15 units before meals, and Jardiance * Hold metformin, Trulicity * Hypoglycemia protocol * Trend glucose * adjust therapy as indicated (9) Sepsis: Code(s): A41.9 - Sepsis, unspecified organism Status: Acute Assessment and Plan: * Patient meets sirs with a leukocytosis, ? Tachycardia, hypothermia, tachypnea with a source of infection being in the abdomen. * Continue antibiotics * IV hydration on board * blood cultures pending * WBCs stable currently 9.6 * trend labs (10) Fever: Code(s): R50.9 - Fever, unspecified Status: Acute Assessment and Plan: * Fever as high as 100.7 * Blood cultures pending * Continue to trend * Continue antibiotics * resolved Time Spent With Patient Time with patient: 25 - 35 minutes Subjective Date/time seen: 03/20/22944 Interval history: 03/20/22944 Patient is doing well sit in a chair today. He denies any chest pain, shortness a breath, nausea, vomiting, diarrhe
[2022-03-20 12:07] LABS: Glucose Point of Care 328 mg/dl (65-105)
[2022-03-20] MEDS: INSULIN ASPART (*BKC) 100 UNITS/ML SUB-Q (14:04)
[2022-03-20 14:42] VITALS: BP 101/55; PULSE 89; RESP 18; TEMP 36.7; O2SAT 98
[2022-03-20 17:36] LABS: Glucose Point of Care 185 mg/dl (65-105)
[2022-03-20 20:21] VITALS: BP 146/70; PULSE 89; RESP 18; TEMP 36.4; O2SAT 96
[2022-03-20] MEDS: GABAPENTIN 400 MG CAPSULE 1600 MG PO (20:28)
[2022-03-20] MEDS: INSULIN GLARGINE (*BKC) 100 UNITS/ML 23 UNITS SUB-Q (20:29)
[2022-03-20] MEDS: AMITRIPTYLINE HCL 25 MG TABLET 50 MG PO (20:29)
[2022-03-20 20:37] LABS: Glucose Point of Care 209 mg/dl (65-105)
[2022-03-21 05:01] VITALS: BP 126/68; PULSE 99; RESP 20; TEMP 36.6; O2SAT 97
[2022-03-21] MEDS: metroNIDAZOLE 250 MG TABLET 500 MG PO ×2 (05:44→12:40)
[2022-03-21] MEDS: LEVOTHYROXINE SODIUM 25 MCG TABLET PO (05:44)
[2022-03-21 06:02] LABS: Basophils Absolute Auto 0.1 K/mm3 (0.0-0.1); Basophils Percent Auto 0.9 % (0.2-1.2); Eosinophils Absolute Auto 0.2 K/mm3 (0-0.3); Eosinophils Percent Auto 1.8 % (0-4.4); Hematocrit 40.9 % (42.0-52.0); Hemoglobin 13.1 g/dL (14.0-18.0); Immature Granulocyte Absolute 0.08 K/mm3 (0.00-0.031); Immature Granulocyte Percent A 0.8 % (0-0.5); Lymphocytes Absolute Auto 0.95 K/mm3 (0.9-3.2); Lymphocytes Percent Auto 9.3 % (18.3-44.2); Mean Corpuscular Hemoglobin 28.8 pg (26-34); Mean Corpuscular Volume 89.9 fl (80-100); Mean Platelet Volume 12.1 fl (7.4-10.4); Neutrophils Absolute Auto 7.9 K/mm3 (1.3-6.7); Neutrophils Percent Auto 77.2 % (45.5-73.1); Platelet Count Result 191 k/mm3 (150-375); Red Blood Count 4.55 M/mm3 (4.6-6.20); Red Cell Distribution Width 14.8 % (11.5-14.5); White Blood Count 10.3 K/mm3 (4.5-10.0)
[2022-03-21 06:27] LABS: Alanine Aminotransferase 22 U/L (6-50); Albumin Level 3.5 g/dL (3.5-5.1); Alkaline Phosphatase 49 U/L (38-126); Anion Gap 14 mmol/L (8-16); Aspartate Amino Transferase 31 U/L (17-59); Bilirubin,Total 0.8 mg/dL (0.2-1.3); Blood Urea Nitrogen 24 mg/dL (9-20); Calcium 8.2 mg/dL (8.4-10.2); Carbon Dioxide 20 mmol/L (22-30); Chloride 101 mmol/L (98-107); Estimated CRCL calculation 67 ml/min; Estimated Glomerular Filt Rate > 60; Glucose 155 mg/dL (65-110); Magnesium 1.8 mg/dL (1.6-2.3); Potassium 4.3 mmol/L (3.4-5.0); Sodium 135 mmol/L (137-145)
[2022-03-21 08:24] LABS: Glucose Point of Care 178 mg/dl (65-105)
[2022-03-21] MEDS: EMPAGLIFLOZIN 10 MG TABLET PO (09:08)
[2022-03-21] MEDS: CIPROFLOXACIN 500 MG TAB PO (09:08)
[2022-03-21] MEDS: GABAPENTIN 400 MG CAPSULE 800 MG PO (09:08)
[2022-03-21] MEDS: lisinopriL 20 MG TABLET 40 MG PO (09:08)
[2022-03-21] MEDS: amLODIPine BESYLATE 5 MG TABLET 10 MG PO (09:08)
[2022-03-21] MEDS: ATORVASTATIN 10 MG TABLET PO (09:08)
[2022-03-21 09:09] VITALS: PULSE 97
[2022-03-21] MEDS: METOPROLOL SUCCINATE EXT REL 100 MG TABCR PO (09:09)
[2022-03-21] MEDS: INSULIN ASPART (*BKC) 100 UNITS/ML 15 UNITS SUB-Q ×2 (09:10→12:37)
--- NOTE | 2022-03-21 09:45 | PM.DS ---
DS: Admitting Diagnosis Discharge Date 03/21/22 0945 Admitting Diagnosis Enterocolitis DS: Discharge Diagnosis Discharge Diagnosis (1) Enterocolitis: Code(s): K52.9 - Noninfective gastroenteritis and colitis, unspecified Status: Acute Assessment and Plan: Abd/Pel CT shows bilateral fat-containing hernia, nondilated small and large bowel enterocolitis Stool cultures pending Continue Cirpo/flagyl WBC stable currently 11.2 GI consulted thank you for your help Trend labs Adjust therapy as indicated Low fat bland diet (2) GI bleed: Code(s): K92.2 - Gastrointestinal hemorrhage, unspecified Status: Acute Assessment and Plan: Occult blood positive HGB/HCT 12.7/34.8 GI consulted Continue to trend H/H Transfuse as indicated (3) HTN (hypertension): Code(s): I10 - Essential (primary) hypertension Status: Acute Assessment and Plan: Current blood pressure is 129/71 Continue home amlodipine, lisinopril, metoprolol Trend BP Adjust therapy as indicated (4) Hypothyroidism: Code(s): E03.9 - Hypothyroidism, unspecified Status: Acute Assessment and Plan: Continue levothyroxine at 25mcg daily TSH 1.070 Adjust therapy as indicated (5) Hyperlipidemia: Code(s): E78.5 - Hyperlipidemia, unspecified Status: Acute Assessment and Plan: Continue atorvastatin (6) Hyperkalemia: Code(s): E87.5 - Hyperkalemia Status: Acute Assessment and Plan: K is 4.0 Lokelma x 2 doses was sufficient Continue to trend labs Adjust therapy as indicated (7) 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: Code(s): E08.40 - Diabetes mellitus due to underlying condition with diabetic neuropathy, unspecified Status: Acute Assessment and Plan: Continue gabapentin Hold meloxicam due to occult positive Continue to trend symptoms Adjust therapy as indicated (8) Type 2 diabetes mellitus: Code(s): E11.9 - Type 2 diabetes mellitus without complications Status: Acute Assessment and Plan: Glucose elevated at 167 Change Levemir to Lantus 45 units daily Continue aspart 15 units before meals, and Jardiance Hold metformin, Trulicity Hypoglycemia protocol Trend glucose adjust therapy as indicated (9) Sepsis: Code(s): A41.9 - Sepsis, unspecified organism Status: Acute Assessment and Plan: Patient meets sirs with a leukocytosis, ? Tachycardia, hypothermia, tachypnea with a source of infection being in the abdomen. Continue antibiotics IV hydration on board blood cultures pending WBCs stable currently 11.2 trend labs (10) Fever: Code(s): R50.9 - Fever, unspecified Status: Acute Assessment and Plan: Fever as high as 100.7 Blood cultures pending Continue to trend Continue antibiotics DS: Summary Hospital Course Hospital Course: patient is 71-year-old male with a past medical history of diabetes, peripheral neuropathy, hypertension, hyperlipidemia, hypothyroidism who presented the ED with abdominal pain. Patient was a direct admit from [facility]. Abdominal pelvis CT showed bilateral fat containing hernia, nondilated small and large bowel Enterococcus. So cultures were collected and have been negative thus far. Patient was started on Cipro/Flagyl. White blood cell count upon arrival was 16.6 and currently 11.2. Patient denies any chest pain, shortness a breath, nausea, vomiting, diarrhea, constipation, weakness or fatigue. Patient did state that he had a bowel movement yesterday. it was noted the patient was unable to walk without being wobbly. PT and OT was consulted and patient did well walking the loja with a walker. Patient was also able to get up on his own. Patient is stable for
--- NOTE | 2022-03-21 09:45 | P.DS_ITS ---
DS: Admitting Diagnosis Discharge Date 03/21/22 0945 Admitting Diagnosis Enterocolitis DS: Discharge Diagnosis Discharge Diagnosis (1) Enterocolitis: Code(s): K52.9 - Noninfective gastroenteritis and colitis, unspecified Status: Acute Assessment and Plan: * Abd/Pel CT shows bilateral fat-containing hernia, nondilated small and large bowel enterocolitis * Stool cultures pending * Continue Cirpo/flagyl * WBC stable currently 11.2 * GI consulted thank you for your help * Trend labs * Adjust therapy as indicated * Low fat bland diet (2) GI bleed: Code(s): K92.2 - Gastrointestinal hemorrhage, unspecified Status: Acute Assessment and Plan: * Occult blood positive * HGB/HCT 12.7/34.8 * GI consulted * Continue to trend H/H * Transfuse as indicated (3) HTN (hypertension): Code(s): I10 - Essential (primary) hypertension Status: Acute Assessment and Plan: * Current blood pressure is 129/71 * Continue home amlodipine, lisinopril, metoprolol * Trend BP * Adjust therapy as indicated (4) Hypothyroidism: Code(s): E03.9 - Hypothyroidism, unspecified Status: Acute Assessment and Plan: * Continue levothyroxine at 25mcg daily * TSH 1.070 * Adjust therapy as indicated (5) Hyperlipidemia: Code(s): E78.5 - Hyperlipidemia, unspecified Status: Acute Assessment and Plan: * Continue atorvastatin (6) Hyperkalemia: Code(s): E87.5 - Hyperkalemia Status: Acute Assessment and Plan: * K is 4.0 * Lokelma x 2 doses was sufficient * Continue to trend labs * Adjust therapy as indicated (7) 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: Code(s): E08.40 - Diabetes mellitus due to underlying condition with diabetic neuropathy, unspecified Status: Acute Assessment and Plan: * Continue gabapentin * Hold meloxicam due to occult positive * Continue to trend symptoms * Adjust therapy as indicated (8) Type 2 diabetes mellitus: Code(s): E11.9 - Type 2 diabetes mellitus without complications Status: Acute Assessment and Plan: * Glucose elevated at 167 * Change Levemir to Lantus 45 units daily * Continue aspart 15 units before meals, and Jardiance * Hold metformin, Trulicity * Hypoglycemia protocol * Trend glucose * adjust therapy as indicated (9) Sepsis: Code(s): A41.9 - Sepsis, unspecified organism Status: Acute Assessment and Plan: * Patient meets sirs with a leukocytosis, ? Tachycardia, hypothermia, tachypnea with a source of infection being in the abdomen. * Continue antibiotics * IV hydration on board * blood cultures pending * WBCs stable currently 11.2 * trend labs (10) Fever: Code(s): R50.9 - Fever, unspecified Status: Acute Assessment and Plan: * Fever as high as 100.7 * Blood cultures pending * Continue to trend * Continue antibiotics DS: Summary Hospital Course Hospital Course: patient is 71-year-old male with a past medical history of diabetes, peripheral neuropathy, hypertension, hyperlipidemia, hypothyroidism who p
[2022-03-21 12:24] LABS: Glucose Point of Care 245 mg/dl (65-105)
[2022-03-21] MEDS: INSULIN ASPART (*BKC) 100 UNITS/ML SUB-Q (12:37)
[2022-03-21 12:45] LABS: EDCOVIDSCREEN Negative (Negative)
== END 2022-03-21 13:24 | disposition home health service (06) | DRG 392 ==
PROVIDERS: Admitting Provider Student in an Organized Health Care Education/Training Program; PCP Family Medicine; Visit Provider Nurse Practitioner
DX: K52.9 Noninfective gastroenteritis and colitis, unspecified (principal); K40.20 Bilateral inguinal hernia, without obstruction or gangrene, not specified as recurrent; I10 Essential (primary) hypertension; E11.42 Type 2 diabetes mellitus with diabetic polyneuropathy; Z79.4 Long term (current) use of insulin; Z79.84 Long term (current) use of oral hypoglycemic drugs; E87.5 Hyperkalemia; E03.9 Hypothyroidism, unspecified; E78.5 Hyperlipidemia, unspecified; Z20.822 Contact with and (suspected) exposure to COVID-19; G47.30 Sleep apnea, unspecified; Z87.891 Personal history of nicotine dependence; Z83.3 Family history of diabetes mellitus; Z80.3 Family history of malignant neoplasm of breast; Z79.899 Other long term (current) drug therapy; Z88.0 Allergy status to penicillin
CPT/HCPCS: 36415; 80053; 82948; 83036; 83605; 83735; 84443; 85014; 85018; 85025; 86850; 86900; 86901; 87040; 87045; 87177; 87209; 87269; 87272; 87426; 87427; 89055; 96365; 96366; 96368; 96376; 97110; 97161; 97165; 97530; A9270; C9803; G0378; G0379; J0744; J1815; J7030; J7040

== ENCOUNTER 2023-01-14 15:21 | Outpatient (CLI) | payer OTHER, SELFPAY ==
--- NOTE | ~2023-01-14 | XR_ITS ---
EXAMINATION: XR foot RT min 3V DATE: 01/14/2023 15:44 INDICATION: Right foot ulcer. TECHNIQUE: 4 views of right foot were obtained. 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 There is dorsal dislocation of seco nd proximal phalanx with respect to the metatarsal. There are changes of resection of the heads of th e second and third proximal phalanges. There is mild osteoarthritis of some of the interphalangeal niru ints and midfoot joints. There is severe osteoarthritis of third tarsometatarsal joint. There are ent hesophytes at the posterior and plantar aspects of calcaneal tuberosity. IMPRESSION: 1. No evidence of osteomyelitis. 2. Dislocation of second metatarsophalangeal joint. 3. Polyarticular osteoarthritis. Reviewed, dictated and finalized at location E.
[2023-01-14 15:40] LABS: Basophils Absolute Auto 0.06 K/mm3 (0.00-0.10); Basophils Percent Auto 0.7 % (0.0-1.0); Eosinophils Absolute Auto 0.25 K/mm3 (0.02-0.50); Hematocrit 41.7 % (37.0-46.0); Hemoglobin 13.5 g/dL (12.4-15.3); Immature Granulocyte Absolute 0.04 K/mm3 (0.00-0.00); Immature Granulocyte Percent A 0.5 % (0.0-0.0); Immature Platelet Fraction Pct 9.7 % (1.0-7.0); Lymphocytes Absolute Auto 1.13 K/mm3 (1.10-4.50); Lymphocytes Percent Auto 13.4 % (18.0-42.0); Mean Corpuscular HGB Conc 32.4 g/dL (32.0-36.0); Mean Corpuscular Hemoglobin 29.5 pg (27.0-31.0); Mean Platelet Volume 12.8 fl (8.7-11.0); Monocytes Absolute Auto 0.51 K/mm3 (0.10-0.90); Neutrophils Absolute Auto 6.5 K/mm3 (1.7-7.2); Neutrophils Percent Auto 76.4 % (50.0-70.0); Platelet Count Result 172 K/mm3 (150-420); Red Blood Count 4.58 M/mm3 (4.70-6.10); Red Cell Distribution Width 15.1 % (11.6-14.4); White Blood Count 8.5 K/mm3 (4.8-10.8)
[2023-01-14 17:31] LABS: Alanine Aminotransferase 33 U/L (16-63); Albumin Level 3.6 g/dL (3.4-5.0); Alkaline Phosphatase 58 U/L (46-116); Anion Gap 9 mmol/L (8-16); Aspartate Amino Transferase 24 U/L (15-37); Bilirubin,Total 0.2 mg/dL (0.00-1.00); Blood Urea Nitrogen 20 mg/dL (7-18); Calcium 9.2 mg/dL (8.5-10.1); Carbon Dioxide 26 mmol/L (21-32); Chloride 104 mmol/L (98-108); Estimated Glomerular Filt Rate 60; Glucose 155 mg/dL (70-99); Osmolality Calculated 293 mOsm/kg (285-295); Potassium 5.2 mmol/L (3.5-5.1); Sodium 139 mmol/L (136-145); Thyroid Stimulating Hormone 2.74 uIU/mL (0.36-3.74); Total Protein 7.1 g/dL (6.4-8.2)
[2023-01-15 09:25] LABS: Hemoglobin A1C 8.6 % (<5.7)
== END 2023-01-14 15:22 | disposition home or self-care (01) ==
PROVIDERS: PCP Family Medicine; Visit Provider Family Medicine
DX: S93.124A Dislocation of metatarsophalangeal joint of right lesser toe(s), initial encounter (principal); E11.9 Type 2 diabetes mellitus without complications; M19.071 Primary osteoarthritis, right ankle and foot; E03.9 Hypothyroidism, unspecified
CPT/HCPCS: 36415; 73630; 80053; 83036; 84443; 85025; 85055

== ENCOUNTER 2023-09-09 08:35 | Outpatient (CLI) | payer OTHER, SELFPAY ==
[2023-09-09 09:10] LABS: Hemoglobin A1C 9.3 % (<5.7)
[2023-09-09 10:45] LABS: Alanine Aminotransferase 44 U/L (16-63); Albumin Level 3.7 g/dL (3.4-5.0); Alkaline Phosphatase 64 U/L (46-116); Anion Gap 11 mmol/L (4-12); Aspartate Amino Transferase 27 U/L (15-37); Bilirubin,Total 0.2 mg/dL (0.00-1.00); Blood Urea Nitrogen 21 mg/dL (7-18); Calcium 9.8 mg/dL (8.5-10.1); Carbon Dioxide 28 mmol/L (21-32); Chloride 101 mmol/L (98-108); Cholesterol 125 mg/dL (0-200); Estimated Glomerular Filt Rate 51; Free T4 Free Thyroxine 0.88 ng/dL (0.76-1.46); Glucose 177 mg/dL (70-99); HDL Direct 38 mg/dL (40-60); LDL Cholesterol Calculated 60 mg/dL (<130); Osmolality Calculated 297 mOsm/kg (285-295); Potassium 4.4 mmol/L (3.5-5.1); Sodium 140 mmol/L (136-145); Thyroid Stimulating Hormone 5.99 uIU/mL (0.36-3.74); Total Protein 7.3 g/dL (6.4-8.2); Triglycerides 136 mg/dL (0-150)
== END 2023-09-09 08:36 | disposition home or self-care (01) ==
LOC: CHSLAB 08:39
PROVIDERS: PCP Family Medicine; Visit Provider Family Medicine
DX: E11.9 Type 2 diabetes mellitus without complications (principal)
CPT/HCPCS: 36415; 80053; 80061; 83036; 84439; 84443